=== PATIENT | female | born 1955 | race Caucasian/White ===

== ENCOUNTER 2017-10-13 11:43 | Emergency (ER) | payer BC ==
--- NOTE | 2017-10-13 12:04 | EDM.PDOC ---
ED HPI GENERAL MEDICAL PROBLEM - General Chief Complaint: Lower Extremity Injury/Pain Stated Complaint: LEFT FOOT PAIN Time Seen by Provider: 10/13/17 11:44 Source of Information: Reports: Patient History Limitations: Reports: No Limitations - History of Present Illness INITIAL COMMENTS - FREE TEXT/NARRATIVE: HISTORY AND PHYSICAL: History of present illness: Patient is a 62-year-old female who presents to the emergency room with complaints of left lateral ankle pain. She states she "twisted it wrong" on Wednesday and she has continued pain with weight bearing. She has been using a compression stocking and [id number] products to help alleviate this discomfort. Some bruising and soft tissue swelling noted to the left lateral ankle. Eyes any fever, chills, chest pain or shortness of breath. Denies any GI or symptoms. Patient is able to weight bear although it does cause increased pain. Denies any numbness or tingling to the distal extremity. Previous injury or fracture of the affected extremity. Review of systems: As per history of present illness and below otherwise all systems reviewed and negative. Past medical history: As per history of present illness and as reviewed below otherwise noncontributory. Surgical history: As per history of present illness and as reviewed below otherwise noncontributory. Social history: No reported history of drug or alcohol abuse. Family history: As per history of present illness and as reviewed below otherwise noncontributory. Physical exam: General: Well-developed and well-nourished 62-year-old female. Alert and oriented. Nontoxic appearing and in no acute distress. HEENT: Atraumatic, normocephalic, pupils equal and reactive bilaterally, negative for conjunctival pallor or scleral icterus, mucous membranes moist, throat clear, neck supple, nontender, trachea midline. No drooling or trismus noted. No meningeal signs Lungs: Clear to auscultation, breath sounds equal bilaterally, chest nontender. Heart: S1S2, regular rate and rhythm without overt murmur Abdomen: Soft, nondistended, nontender. Negative for masses or hepatosplenomegaly. Negative for costovertebral tenderness. Pelvis: Stable nontender. Genitourinary: Deferred. Rectal: Deferred. Skin: Healing bruising noted along the solar surface into the left lateral ankle. Otherwise Intact, warm, dry. No lesions or rashes noted. Extremities: Moves all extremities per self without difficulty or deficits. Does have pain with palpation over the left lateral malleolus, strong pedal pulse and pretibial pulse of the affected extremity. Capillary refill less than 3 seconds. Positive CMS. negative for cords or calf pain. Neurovascular unremarkable. Neuro: Awake, alert, oriented. Cranial nerves II through XII unremarkable. Cerebellum unremarkable. Motor and sensory unremarkable throughout. Exam nonfocal. Notes: X-ray shows no findings of fracture or dislocation. We'll give her a stirrup splint with crutches. Education completed. Supportive care measures reviewed and discussed. Patient voices understanding and is agreeable to plan of care. Denies any further questions or concerns at this time. Diagnostics: X-ray left ankle Therapeutics: Stirup Splint, Crutches Prescription: None Impression: Left ankle injury Plan: 1. Rest, ice, elevate the affected extremity. 2. Tylenol and/or ibuprofen as needed and as discussed. 3. Please follow-up with your primary care provider and/or the orthopedic provider in the next 1-2 days. Return to the ED as needed and as discussed. Definitive disposition and diagnosis as appropriate pending reevaluation and review of above. left ankle Pain Score (Numeric/FACES): 4 - Related Data Allergies Allergy/AdvReac Type Severity Reaction Status Date / Time bee pollen Allergy Swelling Verified 10/13/17 11:56 Penicillins Allergy Rash Verified 10/13/17 11:56 Home Meds: Home Meds . [Unable to Verify Home Med List] 10/13/17 [History] Review of Systems - Review of Systems Review Of Systems: ROS reveals no pertinent complaints other than HPI. ED EXAM, GENERAL - Physical Exam Exam: See Below (See dictation) Course - Vital Signs Last Recorded V/S: Last Vital Signs Temp 96.6 F 10/13/17 11:53 Pulse 81 10/13/17 11:53 Resp 16 10/13/17 11:53 BP 142/77 H 10/13/17 11:53 Pulse Ox 94 L 10/13/17 11:53 Departure - Departure Time of Disposition: 12:39 Disposition: Home, Self-Care 01 Clinical Impression: Left ankle injury Qualifiers: Encounter type: initial encounter Qualified Code(s): S99.912A - Unspecified injury of left ankle, initial encounter - Discharge Information Instructions: Ankle Sprain, [id number] Referrals: PCP,None [Primary Care Provider] - Forms: ED Department Discharge Additional Instructions: The following information is given to patients seen in the emergency department who are being discharged to home. This information is to outline your options for follow-up care. We provide all patients seen in our emergency department with a follow-up referral. The need for follow-up, as well as the timing and circumstances, are variable depending upon the specifics of your emergency department visit. If you don't have a primary care physician on staff, we will provide you with a referral. We always advise you to contact your personal physician following an emergency department visit to inform them of the circumstance of the visit and for follow-up with them and/or the need for any referrals to a consulting specialist. The emergency department will also refer you to a specialist when appropriate. This referral assures that you have the opportunity for follow-up care with a specialist. All of these measure are taken in an effort to provide you with optimal care, which includes your follow-up. Under all circumstances we always encourage you to contact your private physician who remains a resource for coordinating your care. When calling for follow-up care, please make the office aware that this follow-up is from your recent emergency room visit. If for any reason you are refused follow-up, please contact the [facility] at and asked to speak to the emergency department charge nurse. [facility] [address] [place] [id number] [facility] [address] [place] [address], [address] [place] [address] 1. Rest, ice, elevate the affected extremity. 2. Tylenol and/or ibuprofen as needed and as discussed. 3. Please follow-up with your primary care provider and/or the orthopedic provider in the next 1-2 days. Return to the ED as needed and as discussed.
--- NOTE | 2017-10-13 12:38 | CR ---
EXAMINATION: Left ankle HISTORY: Pain COMPARISON: None TECHNIQUE: 3 views FINDINGS/IMPRESSION: There is no acute osseous abnormality, dislocation, or fracture. Bone mineraliza tion and joint spaces appear preserved. Osteophyte formation is noted. Well-corticated ossific densit y inferior to the medial malleolus is likely secondary to an old injury.
== END 2017-10-13 12:55 | disposition home or self-care (01) ==
LOC: MW.ED 11:43
DX: S99.912A Unspecified injury of left ankle, initial encounter (principal); Z88.0 Allergy status to penicillin; X50.1XXA Overexertion from prolonged static or awkward postures, initial encounter
CPT/HCPCS: 73610-26-LT; 73610-LT; 99283

== ENCOUNTER 2021-02-05 06:55 | Inpatient (IN) | payer BC ==
[2021-02-05] MEDS ORDERED: Sodium Chloride 0.9% 2.5 ML Syringe FLUSH PRN ×2 (06:57→09:56)
[2021-02-05] MEDS ORDERED: Sodium Chloride 0.9% 10 ML Syringe FLUSH PRN (06:57)
[2021-02-05] MEDS ORDERED: Sodium Chloride 0.9% 1,000 ML IV SCH (07:00)
--- NOTE | 2021-02-05 07:01 | EDM.PDOC ---
ED HPI GENERAL MEDICAL PROBLEM - General Stated Complaint: STROKE Time Seen by Provider: 02/05/21 06:56 - History of Present Illness INITIAL COMMENTS - FREE TEXT/NARRATIVE: History of present illness: [] Patient woke up at 2 AM and she can use her left arm and left leg well. She fell and says she has back pain because of the fall. She talked her sister this morning who is a nurse. She told her to get to the emergency room. Patient was normal at 1030 when she went to bed. She has no speech problem. She has no vision problems she has no neglect. She does have weakness and cannot resist gravity more than a couple seconds of the left upper extremity and left lower extremity and cannot walk well. The right side not affected and sensory is not affected. Patient's not diabetic does not smoke and does not get treated for blood pressure or cholesterol. She has no family history of heart attack or stroke Review of systems: As per history of present illness and below otherwise all systems reviewed and negative. Past medical history: As per history of present illness and as reviewed below otherwise noncontributory. Surgical history: As per history of present illness and as reviewed below otherwise noncontributory. Social history: No reported history of drug or alcohol abuse. Family history: As per history of present illness and as reviewed below otherwise noncontributory. Physical exam: Constitutional - well developed, well-nourished and in no acute distress HEENT - normocephalic, no evidence of trauma - external nose and mouth normal - no mass in neck and no JVD - mucosae moist EYES - full EOM, PERRL, no icterus - no evidence of inflammation, injection, or drainage Respiratory - no respiratory distress, equal bilateral expansion, lungs clear to auscultation and no abnormal lung sounds Cardiovascular - Regular Rhythm with S1 and S2 appreciated and no murmur, gallop or rub. GI - abdomen soft without distension or organomegaly - normal bowel sounds - no guard or rebound Musculoskeletal no gross deformity of long bones or joints - no tenderness, swelling or edema Neurologic - Alert and oriented times four - CN II-XII grossly intact -sensory intact in the extremities and the patient has weakness of the left side. She cannot resist gravity more than 1 second with the left arm more than 2 or 3 seconds with the left leg and her strength on the right is normal. Psychiatric - appropriate mood and affect with normal thought content Hematologic - No petechiae or purpura - mucosa appropriate color and sclera not pale - normal nail bed color and refill Integument - no rash or evidence of trauma - normal turgor Diagnostics: [] Therapeutics: [] Impression: [] Plan: [] Definitive disposition and diagnosis as appropriate pending reevaluation and review of above. - Related Data Allergies Allergy/AdvReac Type Severity Reaction Status Date / Time bee pollen Allergy Swelling Verified 10/13/17 11:56 Penicillins Allergy Rash Verified 10/13/17 11:56 Home Meds: Home Meds . [Unable to Verify Home Med List] 10/13/17 [History] Past Medical History Genitourinary History: Reports: Urinary Incontinence Psychiatric History: Reports: Anxiety, Depression Oncologic (Cancer) History: Reports: Colon - Infectious Disease History Infectious Disease History: Reports: Chicken Pox, Measles - Past Surgical History GI Surgical History: Reports: Colon Female Surgical History: Reports: Hysterectomy Social & Family History - Family History Family Medical History: No Pertinent Family History - Caffeine Use Caffeine Use: Reports: Coffee, Energy Drinks, Tea ED ROS GENERAL - Review of Systems Review Of Systems: Comprehensive ROS is negative, except as noted in HPI. ED EXAM, GENERAL - Physical Exam Exam: See Below Free Text/Narrative:: My physical exam is in the HPI #1 Interpretation EKG Interpretation Comments: EKG done 02/05/2021 at 7:23 AM shows a sinus rhythm with a heart rate of 75 a NC interval of 146 the QT duration of 451 and axis of 19. The QRS is normal ST and T are normal there is no prior for comparison. Impression normal Course - Vital Signs Text/Narrative:: Patient presents as a stroke. Last time seen normal 8-1/2 hours ago. She is out of the window for thrombolytics but not for interventional neurology. Last Recorded V/S: Last Vital Signs Temp 37.0 C 02/05/21 06:55 Pulse 86 02/05/21 06:55 Resp 18 02/05/21 06:55 BP 169/95 H 02/05/21 06:55 Pulse Ox 97 02/05/21 06:55 - Orders/Labs/Meds Orders: Active Orders 24 hr Category Date Time Status Chest 1V Frontal [CR] Stat Exams 02/05/21 06:57 Taken Lumbar Spine 2 or 3V [CR] Stat Exams 02/05/21 07:00 Ordered CORONAVIRUS COVID-19 AUGIE [MOLEC] Stat Lab 02/05/21 07:40 Received Sodium Chloride 0.9% [Normal Saline] 1,000 ml Med 02/05/21 07:00 Active IV ASDIRECTED Sodium Chloride 0.9% [Saline Flush] Med 02/05/21 06:57 Active 10 ml FLUSH ASDIRECTED PRN Sodium Chloride 0.9% [Saline Flush] Med 02/05/21 06:57 Active 2.5 ml FLUSH ASDIRECTED PRN Saline Lock Insert [OM.PC] Stat Oth 02/05/21 06:57 Ordered Medication Orders Sodium Chloride (Normal Saline) 1,000 mls @ 100 mls/hr IV ASDIRECTED JARROD Last Admin: 02/05/21 07:30 Dose: 100 mls/hr Documented by: HERNAN Sodium Chloride (Sodium Chloride 0.9% 10 Ml Syringe) 10 ml FLUSH ASDIRECTED PRN PRN Reason: Keep Vein Open Last Admin: 02/05/21 07:30 Dose: 10 ml Documented by: HERNAN Sodium Chloride (Sodium Chloride 0.9% 2.5 Ml Syringe) 2.5 ml FLUSH ASDIRECTED PRN PRN Reason: Keep Vein Open Last Admin: 02/05/21 07:30 Dose: 2.5 ml Documented by: HERNAN Labs: Laboratory Tests 02/05/21 02/05/21 02/05/21 Range/Units 06:57 06:57 06:57 WBC 10.85 (4.0-11.0) K/uL RBC 4.45 (4.30-5.90) M/uL Hgb 12.6 (12.0-16.0) g/dL Hct 38.2 (36.0-46.0) % MCV 85.8 (80.0-98.0) fL MCH 28.3 (27.0-32.0) pg MCHC 33.0 (31.0-37.0) g/dL RDW Std Deviation 45.4 (28.0-62.0) fl RDW Coeff of Davie 15 (11.0-15.0) % Plt Count 338 (150-400) K/uL MPV 12.30 H (7.40-12.00) fL Neut % (Auto) 82.2 H (48.0-80.0) % Lymph % (Auto) 11.2 L (16.0-40.0) % [place] % (Auto) 6.4 (0.0-15.0) % Eos % (Auto) 0.0 (0.0-7.0) % Baso % (Auto) 0.2 (0.0-1.5) % Neut # (Auto) 8.9 H (1.4-5.7) K/uL Lymph # (Auto) 1.2 (0.6-2.4) K/uL [place] # (Auto) 0.7 (0.0-0.8) K/uL Eos # (Auto) 0.0 (0.0-0.7) K/uL Baso # (Auto) 0.0 (0.0-0.1) K/uL Nucleated RBC % 0.2 /100WBC Nucleated RBCs # 0 K/uL INR 1.00 APTT 26.3 (18.6-31.3) SEC Sodium 144 (136-145) mmol/L Potassium 3.6 (3.5-5.1) mmol/L Chloride 106 (98-107) mmol/L Carbon Dioxide 27.0 (21.0-32.0) mmol/L BUN 14 (7.0-18.0) mg/dL Creatinine 1.0 (0.6-1.0) mg/dL Est Cr Clr Drug Dosing 55.82 mL/min Estimated GFR (MDRD) 55.5 ml/min Glucose 118 H (74-106) mg/dL Calcium 9.7 (8.5-10.1) mg/dL Magnesium 2.1 (1.8-2.4) mg/dL Total Bilirubin 0.5 (0.2-1.0) mg/dL AST 23 (15-37) IU/L ALT 32 (14-63) IU/L Alkaline Phosphatase 109 (46-116) U/L Troponin I < 0.050 (0.000-0.056) ng/mL Total Protein 7.9 (6.4-8.2) g/dL Albumin 4.1 (3.4-5.0) g/dL Globulin 3.8 (2.6-4.0) g/dL Albumin/Globulin Ratio 1.1 (0.9-1.6) TSH, Ultra Sensitive 3.36 (0.36-3.74) uIU/mL Urine Color Urine Appearance Urine pH (5.0-8.0) Ur Specific [facility] (1.001-1.035) Urine Protein (NEGATIVE) mg/dL Urine Glucose (UA) (NEGATIVE) mg/dL Urine Ketones (NEGATIVE) mg/dL Urine Occult Blood (NEGATIVE) Urine Nitrite (NEGATIVE) Urine Bilirubin (NEGATIVE) Urine Urobilinogen (<2.0) EU/dL Ur Leukocyte Esterase (NEGATIVE) 02/05/21 Range/Units 07:56 WBC (4.0-11.0) K/uL RBC (4.30-5.90) M/uL Hgb (12.0-16.0) g/dL Hct (36.0-46.0) % MCV (80.0-98.0) fL MCH (27.0-32.0) pg MCHC (31.0-37.0) g/dL RDW Std Deviation (28.0-62.0) fl RDW Coeff of [place]ie (11.0-15.0) % Plt Count (150-400) K/uL MPV (7.40-12.00) fL Neut % (Auto) (48.0-80.0) % Lymph % (Auto) (16.0-40.0) % [place] % (Auto) (0.0-15.0) % Eos % (Auto) (0.0-7.0) % Baso % (Auto) (0.0-1.5) % Neut # (Auto) (1.4-5.7) K/uL Lymph # (Auto) (0.6-2.4) K/uL [place] # (Auto) (0.0-0.8) K/uL Eos # (Auto) (0.0-0.7) K/uL Baso # (Auto) (0.0-0.1) K/uL Nucleated RBC % /100WBC Nucleated RBCs # K/uL INR APTT (18.6-31.3) SEC Sodium (136-145) mmol/L Potassium (3.5-5.1) mmol/L Chloride (98-107) mmol/L Carbon Dioxide (21.0-32.0) mmol/L BUN (7.0-18.0) mg/dL Creatinine (0.6-1.0) mg/dL Est Cr Clr Drug Dosing mL/min Estimated GFR (MDRD) ml/min Glucose (74-106) mg/dL Calcium (8.5-10.1) mg/dL Magnesium (1.8-2.4) mg/dL Total Bilirubin (0.2-1.0) mg/dL AST (15-37) IU/L ALT (14-63) IU/L Alkaline Phosphatase (46-116) U/L Troponin I (0.000-0.056) ng/mL Total Protein (6.4-8.2) g/dL Albumin (3.4-5.0) g/dL Globulin (2.6-4.0) g/dL Albumin/Globulin Ratio (0.9-1.6) TSH, Ultra Sensitive (0.36-3.74) uIU/mL Urine Color YELLOW Urine Appearance CLEAR Urine pH 7.5 (5.0-8.0) Ur Specific [facility] 1.010 (1.001-1.035) Urine Protein NEGATIVE (NEGATIVE) mg/dL Urine Glucose (UA) NEGATIVE (NEGATIVE) mg/dL Urine Ketones NEGATIVE (NEGATIVE) mg/dL Urine Occult Blood NEGATIVE (NEGATIVE) Urine Nitrite NEGATIVE (NEGATIVE) Urine Bilirubin NEGATIVE (NEGATIVE) Urine Urobilinogen 0.2 (<2.0) EU/dL Ur Leukocyte Esterase NEGATIVE (NEGATIVE) Meds: Medications Generic Name Dose Route Start Last Admin Trade Name Freq PRN Reason Stop Dose Admin Sodium Chloride 1,000 mls @ 100 mls/hr 02/05/21 07:00 02/05/21 07:30 Normal Saline IV 100 mls/hr ASDIRECTED JARROD Administration Sodium Chloride 10 ml 02/05/21 06:57 02/05/21 07:30 Sodium Chloride 0.9% 10 Ml Syringe FLUSH 10 ml ASDIRECTED PRN Administration Keep Vein Open Sodium Chloride 2.5 ml 02/05/21 06:57 02/05/21 07:30 Sodium Chloride 0.9% 2.5 Ml Syringe FLUSH 2.5 ml ASDIRECTED PRN Administration Keep Vein Open Discontinued Medications Generic Name Dose Route Start Last Admin Trade Name Freq PRN Reason Stop Dose Admin Aspirin 324 mg 02/05/21 07:18 02/05/21 07:29 Aspirin 81 Mg Tab.Chew PO 02/05/21 07:19 324 mg ONETIME ONE Administration Iopamidol 100 ml 02/05/21 07:18 02/05/21 07:19 Iopamidol 755 Mg/Ml 500 Ml Multipack Bottle IVPUSH 02/05/21 07:19 100 ml ONETIME STA Administration - Re-Assessments/Exams Free Text/Narrative Re-Assessment/Exam: 02/05/21 08:[address]il[address] with [address]. Oneil and she agreed to consult on this patient if admitted locally. 02/05/21 08:19 Condition unchanged. Discussed with Dr. Poole at 8:16 AM and he agreed to admit the patient here and let Dr. Oneil manage the stroke. Departure - Departure Time of Disposition: 08:19 Disposition: Admitted As Inpatient 65 Condition: Good Clinical Impression: Acute CVA (cerebrovascular accident), Left hemiparesis - Discharge Information Referrals: PCP,None [Primary Care Provider] - Sepsis Event Note (ED) - Focused Exam Vital Signs: Vital Signs Temp Pulse Resp BP Pulse Ox 02/05/21 06:55 37.0 C 86 18 169/95 H 97 - My Orders Last 24 Hours: My Active Orders 02/05/21 06:57 Chest 1V Frontal [CR] Stat Sodium Chloride 0.9% [Saline Flush] 10 ml FLUSH ASDIRECTED PRN Sodium Chloride 0.9% [Saline Flush] 2.5 ml FLUSH ASDIRECTED PRN Saline Lock Insert [OM.PC] Stat 02/05/21 07:00 Lumbar Spine 2 or 3V [CR] Stat Sodium Chloride 0.9% [Normal Saline] 1,000 ml IV ASDIRECTED 02/05/21 07:40 CORONAVIRUS COVID-19 AUGIE [MOLEC] Stat - Assessment/Plan Last 24 Hours: My Active Orders 02/05/21 06:57 Chest 1V Frontal [CR] Stat Sodium Chloride 0.9% [Saline Flush] 10 ml FLUSH ASDIRECTED PRN Sodium Chloride 0.9% [Saline Flush] 2.5 ml FLUSH ASDIRECTED PRN Saline Lock Insert [OM.PC] Stat 02/05/21 07:00 Lumbar Spine 2 or 3V [CR] Stat Sodium Chloride 0.9% [Normal Saline] 1,000 ml IV ASDIRECTED 02/05/21 07:40 CORONAVIRUS COVID-19 AUGIE [MOLEC] Stat
[2021-02-05] MEDS ORDERED: Iopamidol 755 MG/ML 500 ML Multipack Bottle IVPUSH STA (07:18)
[2021-02-05] MEDS ORDERED: Aspirin 81 MG Tab.Chew PO ONE (07:18)
--- NOTE | 2021-02-05 07:28 | CT ---
INDICATION: Stroke symptoms COMPARISON: None TECHNIQUE: CT examination of the head was performed as axial sections without intravenous contrast. Images were obtained from the vertex of the skull through the skull base. Please note that all CT scans at this facility use dose modulation, iterative reconstruction, and/or weight-based dosing when appropriate to reduce radiation dose to as low as reasonably achievable. FINDINGS: The brain shows no sign of mass lesion, mass effect, hemorrhage, or edema. There are involutional changes. There is mild cortical atrophy and there is mild white matter disease. There is no hydrocephalus. The visualized portions of the orbits are normal in appearance. The osseous structures are normal in appearance with no sign of abnormality in the skull base or calvarium. IMPRESSION: Involutional changes. No acute-appearing findings. Please note that all CT scans at this facility use dose modulation, iterative reconstruction, and/or weight-based dosing when appropriate to reduce radiation dose to as low as reasonably achievable. Dictated by Neal Post MD @ 02/05/2021 7:27:16 AM (Electronically Signed)
--- NOTE | 2021-02-05 07:34 | CT ---
DATE: 02/05/2021. CLINICAL HISTORY: Acute neurological deficit. TECHNIQUE: Standard helical CT image acquisition through the head and neck was performed after intravenous contrast bolus enhancement. Multiplanar reconstructed images were performed and interpreted. COMPARISON: None available. FINDINGS: The origins of the great vessels from the aortic arch are patent. The origins of the right and left vertebral arteries are patent. The common carotid arteries are patent. No significant luminal stenoses of the proximal internal carotid arteries by NASCET criteria. The more distal cervical segments of the internal carotid arteries are patent. The cervical segments of the vertebral arteries are patent. No intracranial proximal large vessel occlusion or flow-limiting luminal stenosis. The visualized lung apices are unremarkable. The thyroid gland is unremarkable. Degenerative changes of the cervical spine. IMPRESSION: 1. No intracranial proximal large vessel occlusion or flow-limiting luminal stenosis. 2. Patent cervical arterial vasculature without hemodynamically significant luminal stenosis. Please note that all CT scans at this facility use dose modulation, iterative reconstruction, and/or weight-based dosing when appropriate to reduce radiation dose to as low as reasonably achievable. Dictated by Chris Tavares MD @ 02/05/2021 2:11:19 PM (Electronically Signed)
[2021-02-05 08:01] LABS: BLOOD UREA NITROGEN,BUN 14 mg/dL (7.0-18.0); CHLORIDE,CL 106 mmol/L (98-107); GLUCOSE RANDOM 118 mg/dL (74-106); POTASSIUM,K 3.6 mmol/L (3.5-5.1); SODIUM,NA 144 mmol/L (136-145)
--- NOTE | 2021-02-05 08:26 | CR ---
INDICATION: Stroke. COMPARISON: None TECHNIQUE: Single-view chest radiograph obtained as in AP upright study FINDINGS: TUBES AND LINES: None. HEART AND MEDIASTINUM: The heart size is normal. The mediastinal contour appears normal for patient age. LUNGS AND PLEURAL SPACES: The lungs appear normal.The pleural spaces are unremarkable. OSSEOUS STRUCTURES: Age-appropriate appearance. No acute focal finding. IMPRESSION: No evidence of active pulmonary disease. Dictated by Neal Post MD @ 02/05/2021 8:25:49 AM (Electronically Signed)
--- NOTE | 2021-02-05 08:31 | CR ---
Indication: Pain related to a fall. Technique: Two images of the lumbosacral spine were acquired Comparison: None Findings: Decreased bone mineral density. Moderate degenerative changes diffusely. No visible fracture, dislocation or destructive process. Urinary tract contrast from a recent CT. Fecal retention. Impression: Demineralization and degenerative change without fracture or destructive process. Dictated by Neal Post MD @ 02/05/2021 8:29:19 AM (Electronically Signed)
[2021-02-05] MEDS ORDERED: Acetaminophen 325 MG Tab PO PRN (09:56)
[2021-02-05] MEDS ORDERED: Ondansetron 4 MG/2 ML SDV IVPUSH PRN (09:56)
[2021-02-05] MEDS ORDERED: Docusate Sodium 100 MG Cap PO PRN (09:56)
[2021-02-05 10:12] LABS: HEMOGLOBIN A1C 5.5 %
--- NOTE | 2021-02-05 11:59 | PCM.HP.2 ---
H&P History of Present Illness - General Date of Service: 02/05/21 Admit Problem/Dx: Admission Diagnosis/Problem Admission Diagnosis/Problem Stroke of unknown etiology Source of Information: Patient History Limitations: Reports: No Limitations - History of Present Illness Initial Comments - Free Text/Narative: This 65-year-old female [id number] with past medical history of bladder control issues and anxiety/depression presented to the ER after she woke up early this morning around 2 AM to go to the bathroom when she noticed her left arm was significantly weak and left leg was weak as well. She had attempted to get up and ambulate feeling significantly tilted to the left and did fall as she was unlocking her back torso when someone came to help the door will be unlocked. She reports she otherwise has been feeling well. Maybe a small headache last night when she was leaving work but otherwise no other complaints. She denies any visual concerns. No dizziness or lightheadedness. No speech concerns or swallowing concerns. She denies any chest pain or shortness of breath no abdominal pain no incontinence of stool or urine. She denies any sensation concerns to the left upper and lower extremities. She feels that her left arm is significantly heavy. She feels the weakness is more in her left foot more so in the entire leg. She has no concerns of the right extremity and strength is good. She denies any history of this in the past. She denies any family history of CVA. She does report that her brother recently had coronary artery stents placed. She denies any history of hypertension, diabetes or high cholesterol. She denies any tobacco use during her lifetime, no alcohol use and no recreational drug use. She denies any arrhythmias. She does report that she drinks monster drinks at least 1 a day. In the ER no leukocytosis noted. INR 1.0 sodium 144 potassium 3.6 BUN 14 creatinine 1.0 hemoglobin A1c 5.5 troponin negative triglycerides 127 total cholesterol 235 LDL 149 HDL 61 TSH 3.11 urine negative SARS-CoV-[address] obtained which shows no acute appearing findings no mass lesion or hemorrhage noted. Mild cortical atrophy no hydrocephalus. Head CTA obtained on preliminary reading shows no large vessel occlusion no significant stenosis. CTA of the neck shows no carotid stenosis no dissection involving the carotid or vertebral system per preliminary report. Chest x-ray reveals no evidence of acute cardiopulmonary disease. Lumbar x-ray shows demineralization and degenerative changes without fracture or destructive process. EKG sinus rhythm no acute arrhythmia noted. Patient was given aspirin in the ER. Blood pressures 1 50-1 60 over 80s in the ER. Heart rates 70s to 80s. Afebrile. Dr. Oneil was consulted in the ER regarding acute CVA. Patient outside of timeframe for TPA. No acute thrombectomy needed at this time. Patient to be admitted for possible acute CVA with left-sided weakness. - Related Data Allergies/Adverse Reactions: Allergies Allergy/AdvReac Type Severity Reaction Status Date / Time bee pollen Allergy Swelling Verified 10/13/17 11:56 Penicillins Allergy Rash Verified 10/13/17 11:56 Home Medications: Home Meds . [Unable to Verify Home Med List] 10/13/17 [History] Past Medical History Cardiovascular History: Reports: None. Denies: Afib, Blood Clots/VTE/DVT, CAD, High Cholesterol, Hypertension Respiratory History: Reports: None. 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 Denies: CVA, MS, Seizure, TIA Psychiatric History: Reports: Anxiety, Depression Endocrine/Metabolic History: Reports: None. Denies: Diabetes, Type II, Hypothyroidism Hematologic History: Reports: None Immunologic History: Reports: None Oncologic (Cancer) History: Reports: Colon Dermatologic History: Reports: None - Infectious Disease History Infectious Disease History: Reports: Chicken Pox, Measles - Past Surgical History GI Surgical History: Reports: Colon Female Surgical History: Reports: Hysterectomy Social & Family History - Family History Family Medical History: No Pertinent Family History - Tobacco Use Tobacco Use Status *Q: Never Tobacco User - Caffeine Use Caffeine Use: Reports: Coffee, Energy Drinks - Alcohol Use Alcohol Use History: No - Recreational Drug Use Recreational Drug Use: No - Living Situation & Occupation Living situation: Reports: Alone Occupation: Employed (Works at a [employer]) H&P Review of Systems - Review of Systems: Review Of Systems: See Below General: Reports: No Symptoms. Denies: Fever, Chills, Malaise, Weakness HEENT: Reports: No Symptoms. Denies: Contact Lenses, Headaches, Sinus Congestion, Sore Throat, Vertigo Pulmonary: Reports: No Symptoms. Denies: Shortness of Breath Cardiovascular: Reports: No Symptoms. Denies: Chest Pain Gastrointestinal: Reports: No Symptoms. Denies: Abdominal Pain, Nausea, Vomiting Genitourinary: Reports: No Symptoms, Incontinence (Chronic but takes meds). Denies: Dysuria, Frequency Musculoskeletal: Reports: Back Pain (Sore after fall). Denies: Neck Pain Skin: Reports: Bruising Psychiatric: Reports: No Symptoms Neurological: Reports: Difficulty Walking, Weakness (Left arm and leg) Hematologic/Lymphatic: Reports: No Symptoms Immunologic: Reports: No Symptoms Exam - Exam Exam: See Below - Vital Signs Vital Signs: Last Vital Signs Temp 98.6 F 02/05/21 06:55 Pulse 81 02/05/21 08:50 Resp 18 02/05/21 06:55 BP 147/77 H 02/05/21 08:50 Pulse Ox 93 L 02/05/21 08:50 Weight: 86.183 kg - Exam General: Alert, Oriented, Cooperative HEENT: Conjunctiva Clear, Mucosa Moist & [place], Nares Patent, Pupils Equal Neck: Supple, Trachea Midline Lungs: Clear to Auscultation, Normal Respiratory Effort Cardiovascular: Regular Rate, Regular Rhythm, Normal S1, Normal S2. No: Irregular Rhythm, Systolic Murmur GI/Abdominal Exam: Normal Bowel Sounds, Soft, Non-Tender Extremities: Normal Inspection, Normal Range of Motion, Non-Tender, No Pedal Edema Neurological: No: Strength Equal Bilateral (Left weaker than right) Neuro Extensive - Mental Status: Alert, Oriented x3, Normal Mood/Affect Neuro Extensive - Motor, Sensory, Reflexes: CN II-XII Intact, Abnormal Gait, Pronator Drift (L), Abnormal Finger to Nose, Abnormal Heel to [place] Psychiatric: Alert, Normal Affect, Normal Mood - Patient Data Lab Results Last 24 hrs: Laboratory Results - last 24 hr 02/05/21 02/05/21 02/05/21 Range/Units 06:57 06:57 06:57 WBC 10.85 (4.0-11.0) K/uL RBC 4.45 (4.30-5.90) M/uL Hgb 12.6 (12.0-16.0) g/dL Hct 38.2 (36.0-46.0) % MCV 85.8 (80.0-98.0) fL MCH 28.3 (27.0-32.0) pg MCHC 33.0 (31.0-37.0) g/dL RDW Std Deviation 45.4 (28.0-62.0) fl RDW Coeff of [place]ie 15 (11.0-15.0) % Plt Count 338 (150-400) K/uL MPV 12.30 H (7.40-12.00) fL Neut % (Auto) 82.2 H (48.0-80.0) % Lymph % (Auto) 11.2 L (16.0-40.0) % [place] % (Auto) 6.4 (0.0-15.0) % Eos % (Auto) 0.0 (0.0-7.0) % Baso % (Auto) 0.2 (0.0-1.5) % Neut # (Auto) 8.9 H (1.4-5.7) K/uL Lymph # (Auto) 1.2 (0.6-2.4) K/uL [place] # (Auto) 0.7 (0.0-0.8) K/uL Eos # (Auto) 0.0 (0.0-0.7) K/uL Baso # (Auto) 0.0 (0.0-0.1) K/uL Nucleated RBC % 0.2 /100WBC Nucleated RBCs # 0 K/uL INR 1.00 APTT 26.3 (18.6-31.3) SEC Sodium 144 (136-145) mmol/L Potassium 3.6 (3.5-5.1) mmol/L Chloride 106 (98-107) mmol/L Carbon Dioxide 27.0 (21.0-32.0) mmol/L BUN 14 (7.0-18.0) mg/dL Creatinine 1.0 (0.6-1.0) mg/dL Est Cr Clr Drug Dosing 55.82 mL/min Estimated GFR (MDRD) 55.5 ml/min Glucose 118 H (74-106) mg/dL Hemoglobin A1c (4.5 - 6.2) % Calcium 9.7 (8.5-10.1) mg/dL Magnesium 2.1 (1.8-2.4) mg/dL Total Bilirubin 0.5 (0.2-1.0) mg/dL AST 23 (15-37) IU/L ALT 32 (14-63) IU/L Alkaline Phosphatase 109 (46-116) U/L Troponin I < 0.050 (0.000-0.056) ng/mL Total Protein 7.9 (6.4-8.2) g/dL Albumin 4.1 (3.4-5.0) g/dL Globulin 3.8 (2.6-4.0) g/dL Albumin/Globulin Ratio 1.1 (0.9-1.6) Triglycerides (0-200) mg/dL Cholesterol (50-200) mg/dL LDL Cholesterol, Calc (60-180) mg/dL VLDL Cholesterol (5-55) mg/dL HDL Cholesterol (40-60) mg/dL Cholesterol/HDL Ratio (3.3-6.0) TSH, Ultra Sensitive 3.36 (0.36-3.74) uIU/mL Urine Color Urine Appearance Urine pH (5.0-8.0) Ur Specific Arp (1.001-1.035) Urine Protein (NEGATIVE) mg/dL Urine Glucose (UA) (NEGATIVE) mg/dL Urine Ketones (NEGATIVE) mg/dL Urine Occult Blood (NEGATIVE) Urine Nitrite (NEGATIVE) Urine Bilirubin (NEGATIVE) Urine Urobilinogen (<2.0) EU/dL Ur Leukocyte Esterase (NEGATIVE) SARS-CoV-2 RNA (AUGIE) (NEGATIVE) 02/05/21 02/05/21 02/05/21 Range/Units 06:57 06:57 07:40 WBC (4.0-11.0) K/uL RBC (4.30-5.90) M/uL Hgb (12.0-16.0) g/dL Hct (36.0-46.0) % MCV (80.0-98.0) fL MCH (27.0-32.0) pg MCHC (31.0-37.0) g/dL RDW Std Deviation (28.0-62.0) fl RDW Coeff of [place]ie (11.0-15.0) % Plt Count (150-400) K/uL MPV (7.40-12.00) fL Neut % (Auto) (48.0-80.0) % Lymph % (Auto) (16.0-40.0) % [place] % (Auto) (0.0-15.0) % Eos % (Auto) (0.0-7.0) % Baso % (Auto) (0.0-1.5) % Neut # (Auto) (1.4-5.7) K/uL Lymph # (Auto) (0.6-2.4) K/uL [place] # (Auto) (0.0-0.8) K/uL Eos # (Auto) (0.0-0.7) K/uL Baso # (Auto) (0.0-0.1) K/uL Nucleated RBC % /100WBC Nucleated RBCs # K/uL INR APTT (18.6-31.3) SEC Sodium (136-145) mmol/L Potassium (3.5-5.1) mmol/L Chloride (98-107) mmol/L Carbon Dioxide (21.0-32.0) mmol/L BUN (7.0-18.0) mg/dL Creatinine (0.6-1.0) mg/dL Est Cr Clr Drug Dosing mL/min Estimated GFR (MDRD) ml/min Glucose (74-106) mg/dL Hemoglobin A1c 5.5 (4.5 - 6.2) % Calcium (8.5-10.1) mg/dL Magnesium (1.8-2.4) mg/dL Total Bilirubin (0.2-1.0) mg/dL AST (15-37) IU/L ALT (14-63) IU/L Alkaline Phosphatase (46-116) U/L Troponin I (0.000-0.056) ng/mL Total Protein (6.4-8.2) g/dL Albumin (3.4-5.0) g/dL Globulin (2.6-4.0) g/dL Albumin/Globulin Ratio (0.9-1.6) Triglycerides 127 (0-200) mg/dL Cholesterol 235 H (50-200) mg/dL LDL Cholesterol, Calc 149 (60-180) mg/dL VLDL Cholesterol 25 (5-55) mg/dL HDL Cholesterol 61 H (40-60) mg/dL Cholesterol/HDL Ratio 3.9 (3.3-6.0) TSH, Ultra Sensitive 3.11 (0.36-3.74) uIU/mL Urine Color Urine Appearance Urine pH (5.0-8.0) Ur Specific [place]p (1.001-1.035) Urine Protein (NEGATIVE) mg/dL Urine Glucose (UA) (NEGATIVE) mg/dL Urine Ketones (NEGATIVE) mg/dL Urine Occult Blood (NEGATIVE) Urine Nitrite (NEGATIVE) Urine Bilirubin (NEGATIVE) Urine Urobilinogen (<2.0) EU/dL Ur Leukocyte Esterase (NEGATIVE) SARS-CoV-2 RNA (AUGIE) NEGATIVE (NEGATIVE) 02/05/21 Range/Units 07:56 WBC (4.0-11.0) K/uL RBC (4.30-5.90) M/uL Hgb (12.0-16.0) g/dL Hct (36.0-46.0) % MCV (80.0-98.0) fL MCH (27.0-32.0) pg MCHC (31.0-37.0) g/dL RDW Std Deviation (28.0-62.0) fl RDW Coeff of [place]ie (11.0-15.0) % Plt Count (150-400) K/uL MPV (7.40-12.00) fL Neut % (Auto) (48.0-80.0) % Lymph % (Auto) (16.0-40.0) % [place] % (Auto) (0.0-15.0) % Eos % (Auto) (0.0-7.0) % Baso % (Auto) (0.0-1.5) % Neut # (Auto) (1.4-5.7) K/uL Lymph # (Auto) (0.6-2.4) K/uL [place] # (Auto) (0.0-0.8) K/uL Eos # (Auto) (0.0-0.7) K/uL Baso # (Auto) (0.0-0.1) K/uL Nucleated RBC % /100WBC Nucleated RBCs # K/uL INR APTT (18.6-31.3) SEC Sodium (136-145) mmol/L Potassium (3.5-5.1) mmol/L Chloride (98-107) mmol/L Carbon Dioxide (21.0-32.0) mmol/L BUN (7.0-18.0) mg/dL Creatinine (0.6-1.0) mg/dL Est Cr Clr Drug Dosing mL/min Estimated GFR (MDRD) ml/min Glucose (74-106) mg/dL Hemoglobin A1c (4.5 - 6.2) % Calcium (8.5-10.1) mg/dL Magnesium (1.8-2.4) mg/dL Total Bilirubin (0.2-1.0) mg/dL AST (15-37) IU/L ALT (14-63) IU/L Alkaline Phosphatase (46-116) U/L Troponin I (0.000-0.056) ng/mL Total Protein (6.4-8.2) g/dL Albumin (3.4-5.0) g/dL Globulin (2.6-4.0) g/dL Albumin/Globulin Ratio (0.9-1.6) Triglycerides (0-200) mg/dL Cholesterol (50-200) mg/dL LDL Cholesterol, Calc (60-180) mg/dL VLDL Cholesterol (5-55) mg/dL HDL Cholesterol (40-60) mg/dL Cholesterol/HDL Ratio (3.3-6.0) TSH, Ultra Sensitive (0.36-3.74) uIU/mL Urine Color YELLOW Urine Appearance CLEAR Urine pH 7.5 (5.0-8.0) Ur Specific [place] 1.010 (1.001-1.035) Urine Protein NEGATIVE (NEGATIVE) mg/dL Urine Glucose (UA) NEGATIVE (NEGATIVE) mg/dL Urine Ketones NEGATIVE (NEGATIVE) mg/dL Urine Occult Blood NEGATIVE (NEGATIVE) Urine Nitrite NEGATIVE (NEGATIVE) Urine Bilirubin NEGATIVE (NEGATIVE) Urine Urobilinogen 0.2 (<2.0) EU/dL Ur Leukocyte Esterase NEGATIVE (NEGATIVE) SARS-CoV-2 RNA (AUGIE) (NEGATIVE) Result Diagrams: 02/05/21 06:57 02/05/21 06:57 Sepsis Event Note - Focused Exam Vital Signs: Vital Signs Temp Pulse Resp BP Pulse Ox 02/05/21 08:50 81 147/77 H 93 L 02/05/21 08:21 75 151/85 H 93 L 02/05/21 07:52 81 168/91 H 95 02/05/21 07:37 81 149/80 H 95 02/05/21 07:22 82 154/91 H 92 L 02/05/21 06:55 98.6 F 86 18 169/95 H 97 - Problem List (1) Acute CVA (cerebrovascular accident) SNOMED Code(s): 717843168, 350076766 ICD Code: I63.9 - CEREBRAL INFARCTION, UNSPECIFIED Status: Acute Current Visit: Yes (2) Left hemiparesis SNOMED Code(s): 158288398 ICD Code: G81.94 - HEMIPLEGIA, UNSPECIFIED AFFECTING LEFT NONDOMINANT SIDE Status: Acute Current Visit: Yes (3) Depression with anxiety SNOMED Code(s): 111220074 ICD Code: F41.8 - OTHER SPECIFIED ANXIETY DISORDERS Status: Chronic Current Visit: Yes (4) Bladder incontinence SNOMED Code(s): 865410129 ICD Code: R32 - UNSPECIFIED URINARY INCONTINENCE Status: Chronic Current Visit: Yes Problem List Initiated/Reviewed/Updated: Yes Orders Last 24hrs: Active Orders 24 hr Category Date Time Status Admission Status [Patient Status] [ADT] Stat ADT 02/05/21 08:20 Active Intake and Output [RC] QSHIFT Care 02/05/21 09:56 Active NIH Stroke Scale [RC] Q12HR Care 02/05/21 10:03 Active Notify Provider Consults [RC] ASDIRECTED Care 02/05/21 11:51 Ordered Oxygen Therapy [RC] PRN Care 02/05/21 09:56 Active Telemetry Monitoring [Cardiac Monitoring] [RC] . Care 02/05/21 09:41 Active DIRECTED Up With Assistance [RC] ASDIRECTED Care 02/05/21 09:56 Active VTE/DVT Education [RC] PER UNIT ROUTINE Care 02/05/21 09:56 Active Vital Signs [RC] Q4H Care 02/05/21 09:56 Active Consult to Physician [CONS] Routine Cons 02/05/21 11:51 Ordered OT Evaluation and Treatment [CONS] Routine Cons 02/05/21 09:56 Active PT Evaluation and Treatment [CONS] Routine Cons 02/05/21 09:56 Active Heart Healthy Diet [DIET] Diet 02/05/21 Lunch Active Brain w wo Cont [MR] Urgent Exams 02/05/21 09:56 Ordered Echo Comp wo Cont [US] Urgent Exams 02/05/21 09:56 Ordered BASIC METABOLIC PANEL,BMP [CHEM] AM Lab 02/06/21 05:11 Ordered CBC WITH AUTO DIFF [HEME] AM Lab 02/06/21 05:11 Ordered MAGNESIUM [CHEM] AM Lab 02/06/21 05:11 Ordered Acetaminophen [TylenoL] Med 02/05/21 09:56 Active 650 mg PO Q4H PRN Aspirin Med 02/06/21 09:00 Active 81 mg PO DAILY Docusate Sodium [Colace] Med 02/05/21 09:56 Active 100 mg PO BID PRN Ondansetron [Zofran] Med 02/05/21 09:56 Active 4 mg IVPUSH Q4H PRN Sodium Chloride 0.9% [Saline Flush] Med 02/05/21 09:56 Active 2.5 ml FLUSH ASDIRECTED PRN atorvaSTATin [Lipitor] Med 02/05/21 21:00 Active 80 mg PO BEDTIME Saline Lock Insert [OM.PC] Routine Oth 02/05/21 09:56 Ordered Medication Orders Acetaminophen (Acetaminophen 325 Mg Tab) 650 mg PO Q4H PRN PRN Reason: Pain (Mild 1-3)/fever Aspirin (Aspirin 81 Mg Tab.Chew) 81 mg PO DAILY JARROD Atorvastatin Calcium (Atorvastatin 40 Mg Tab) 80 mg PO BEDTIME JARROD Docusate Sodium (Docusate Sodium 100 Mg Cap) 100 mg PO BID PRN PRN Reason: Constipation Ondansetron HCl (Ondansetron 4 Mg/2 Ml Sdv) 4 mg IVPUSH Q4H PRN PRN Reason: Nausea Sodium Chloride (Sodium Chloride 0.9% 2.5 Ml Syringe) 2.5 ml FLUSH ASDIRECTED PRN PRN Reason: Keep Vein Open Assessment/Plan Comment:: This 65-year-old female admitted with suspected acute CVA with left-sided hemiparesis 1. Acute CVA -[facility] consulted -Obtain lipid panel, TSH and A1c -Obtain MRI of brain -Obtain echo -Monitor on telemetry for any arrhythmias consider Zio patch on discharge -Start aspirin daily -Start atorvastatin 80 mg daily -PT OT to evaluate and treat no speech therapy needed at this time is no swallow or speech difficulties noted VTE prophylaxis: Lovenox CODE STATUS: DNR/DNI per patient Dispo 2 to 3 days - Mortality Measure Prognosis:: Good
--- NOTE | 2021-02-05 12:34 | PCM.CONS ---
H&P History of Present Illness - General Date of Service: 02/05/21 Admit Problem/Dx: Admission Diagnosis/Problem Admission Diagnosis/Problem Stroke of unknown etiology - History of Present Illness Initial Comments - Free Text/Narative: 65 year old woman admitted today with left arm/leg weakness. She was last known well when she went to bed at 10:30. She woke up at 2 am and got up to go to the bathroom. She fell and was unable to stand. Weakness had persisted by 6am and presented to the ED. CTA head and neck was negative for occlusion. Her brother had MS at age 70. No tobacco use. 2 weeks ago she stayed home from work one day because she wasn't feeling well but was fine next day. She had mild headache yesterday, not today. CTA head and neck today 02/05/2021 No occlusion or significant stenosis CT head no acute process Labs 02/05/2021 COVID RNA negative, UA negative, CMP, TSH, CBC unremarkable - Related Data Allergies/Adverse Reactions: Allergies Allergy/AdvReac Type Severity Reaction Status Date / Time bee pollen Allergy Swelling Verified 10/13/17 11:56 Penicillins Allergy Rash Verified 10/13/17 11:56 Home Medications: Home Meds . [Unable to Verify Home Med List] 10/13/17 [History] Past Medical History Gastrointestinal History: Reports: None Genitourinary History: Reports: Urinary Incontinence [employer] History: Reports: None Musculoskeletal History: Reports: None Neurological History: Reports: None Psychiatric History: Reports: Anxiety, Depression Endocrine/Metabolic History: Reports: None Hematologic History: Reports: None Immunologic History: Reports: None Oncologic (Cancer) History: Reports: Colon Dermatologic History: Reports: None - Infectious Disease History Infectious Disease History: Reports: Chicken Pox, Measles - Past Surgical History GI Surgical History: Reports: Colon Female Surgical History: Reports: Hysterectomy Social & Family History - Family History Family Medical History: No Pertinent Family History - Caffeine Use Caffeine Use: Reports: Coffee, Energy Drinks - Recreational Drug Use Recreational Drug Use: No H&P Review of Systems - Review of Systems: Review Of Systems: Comprehensive ROS is negative, except as noted in HPI. Exam - Exam Exam: See Below - Vital Signs Vital Signs: Last Vital Signs Temp 37.0 C 02/05/21 06:55 Pulse 81 02/05/21 08:50 Resp 18 02/05/21 06:55 BP 147/77 H 02/05/21 08:50 Pulse Ox 93 L 02/05/21 08:50 Weight: 86.183 kg - Exam Physical Exam Comments:: Neurological: Mental Status: General: Normal activity, good hygiene, appropriate appearance. Level of consciousness: Awake, alert. Orientation: Oriented to person, place, time and situation. Concentration/Attention Span: Normal. Comprehension/Praxis: Able to perform a three step command. Fund of Knowledge/memory: Adequate recent and remote recall. Language: Fluent and articulate without evidence of aphasia or dysarthria. Thought Content: Normal. Insight/Judgement: Normal. Cranial Nerves: Pupils equally round and reactive to light. Visual dover full to confrontation, no extinction. . Gaze conjugate, EOMI. Sensation intact and symmetric to light touch. Face slightly asymmetric, modest dysarthria. . Palate elevates symmetrically. Normal shrug bilaterally. Tongue protrudes midline Motor: Weakness on left as follows: Left triceps 4, WE 4, WF 4+, finger abduction 3, hip flexion 3, knee extension 4, knee flexion 4-, ankle DF 4+ Sensation: Sensation is intact to temp and light touch. No extinction. . Deep tendon reflexes: Normoactive throughout. Coordination: Finger to nose limited by weakness on left Gait: not assessed - Patient Data Lab Results Last 24 hrs: Laboratory Results - last 24 hr 02/05/21 02/05/21 02/05/21 Range/Units 06:57 06:57 06:57 WBC 10.85 (4.0-11.0) K/uL RBC 4.45 (4.30-5.90) M/uL Hgb 12.6 (12.0-16.0) g/dL Hct 38.2 (36.0-46.0) % MCV 85.8 (80.0-98.0) fL MCH 28.3 (27.0-32.0) pg MCHC 33.0 (31.0-37.0) g/dL RDW Std Deviation 45.4 (28.0-62.0) fl RDW Coeff of Davie 15 (11.0-15.0) % Plt Count 338 (150-400) K/uL MPV 12.30 H (7.40-12.00) fL Neut % (Auto) 82.2 H (48.0-80.0) % Lymph % (Auto) 11.2 L (16.0-40.0) % Allen % (Auto) 6.4 (0.0-15.0) % Eos % (Auto) 0.0 (0.0-7.0) % Baso % (Auto) 0.2 (0.0-1.5) % Neut # (Auto) 8.9 H (1.4-5.7) K/uL Lymph # (Auto) 1.2 (0.6-2.4) K/uL Allen # (Auto) 0.7 (0.0-0.8) K/uL Eos # (Auto) 0.0 (0.0-0.7) K/uL Baso # (Auto) 0.0 (0.0-0.1) K/uL Nucleated RBC % 0.2 /100WBC Nucleated RBCs # 0 K/uL INR 1.00 APTT 26.3 (18.6-31.3) SEC Sodium 144 (136-145) mmol/L Potassium 3.6 (3.5-5.1) mmol/L Chloride 106 (98-107) mmol/L Carbon Dioxide 27.0 (21.0-32.0) mmol/L BUN 14 (7.0-18.0) mg/dL Creatinine 1.0 (0.6-1.0) mg/dL Est Cr Clr Drug Dosing 55.82 mL/min Estimated GFR (MDRD) 55.5 ml/min Glucose 118 H (74-106) mg/dL Hemoglobin A1c (4.5 - 6.2) % Calcium 9.7 (8.5-10.1) mg/dL Magnesium 2.1 (1.8-2.4) mg/dL Total Bilirubin 0.5 (0.2-1.0) mg/dL AST 23 (15-37) IU/L ALT 32 (14-63) IU/L Alkaline Phosphatase 109 (46-116) U/L Troponin I < 0.050 (0.000-0.056) ng/mL Total Protein 7.9 (6.4-8.2) g/dL Albumin 4.1 (3.4-5.0) g/dL Globulin 3.8 (2.6-4.0) g/dL Albumin/Globulin Ratio 1.1 (0.9-1.6) Triglycerides (0-200) mg/dL Cholesterol (50-200) mg/dL LDL Cholesterol, Calc (60-180) mg/dL VLDL Cholesterol (5-55) mg/dL HDL Cholesterol (40-60) mg/dL Cholesterol/HDL Ratio (3.3-6.0) TSH, Ultra Sensitive 3.36 (0.36-3.74) uIU/mL Urine Color Urine Appearance Urine pH (5.0-8.0) Ur Specific [place] (1.001-1.035) Urine Protein (NEGATIVE) mg/dL Urine Glucose (UA) (NEGATIVE) mg/dL Urine Ketones (NEGATIVE) mg/dL Urine Occult Blood (NEGATIVE) Urine Nitrite (NEGATIVE) Urine Bilirubin (NEGATIVE) Urine Urobilinogen (<2.0) EU/dL Ur Leukocyte Esterase (NEGATIVE) SARS-CoV-2 RNA (AUGIE) (NEGATIVE) 02/05/21 02/05/21 02/05/21 Range/Units 06:57 06:57 07:40 WBC (4.0-11.0) K/uL RBC (4.30-5.90) M/uL Hgb (12.0-16.0) g/dL Hct (36.0-46.0) % MCV (80.0-98.0) fL MCH (27.0-32.0) pg MCHC (31.0-37.0) g/dL RDW Std Deviation (28.0-62.0) fl RDW Coeff of Davie (11.0-15.0) % Plt Count (150-400) K/uL MPV (7.40-12.00) fL Neut % (Auto) (48.0-80.0) % Lymph % (Auto) (16.0-40.0) % Allen % (Auto) (0.0-15.0) % Eos % (Auto) (0.0-7.0) % Baso % (Auto) (0.0-1.5) % Neut # (Auto) (1.4-5.7) K/uL Lymph # (Auto) (0.6-2.4) K/uL Allen # (Auto) (0.0-0.8) K/uL Eos # (Auto) (0.0-0.7) K/uL Baso # (Auto) (0.0-0.1) K/uL Nucleated RBC % /100WBC Nucleated RBCs # K/uL INR APTT (18.6-31.3) SEC Sodium (136-145) mmol/L Potassium (3.5-5.1) mmol/L Chloride (98-107) mmol/L Carbon Dioxide (21.0-32.0) mmol/L BUN (7.0-18.0) mg/dL Creatinine (0.6-1.0) mg/dL Est Cr Clr Drug Dosing mL/min Estimated GFR (MDRD) ml/min Glucose (74-106) mg/dL Hemoglobin A1c 5.5 (4.5 - 6.2) % Calcium (8.5-10.1) mg/dL Magnesium (1.8-2.4) mg/dL Total Bilirubin (0.2-1.0) mg/dL AST (15-37) IU/L ALT (14-63) IU/L Alkaline Phosphatase (46-116) U/L Troponin I (0.000-0.056) ng/mL Total Protein (6.4-8.2) g/dL Albumin (3.4-5.0) g/dL Globulin (2.6-4.0) g/dL Albumin/Globulin Ratio (0.9-1.6) Triglycerides 127 (0-200) mg/dL Cholesterol 235 H (50-200) mg/dL LDL Cholesterol, Calc 149 (60-180) mg/dL VLDL Cholesterol 25 (5-55) mg/dL HDL Cholesterol 61 H (40-60) mg/dL Cholesterol/HDL Ratio 3.9 (3.3-6.0) TSH, Ultra Sensitive 3.11 (0.36-3.74) uIU/mL Urine Color Urine Appearance Urine pH (5.0-8.0) Ur Specific [place] (1.001-1.035) Urine Protein (NEGATIVE) mg/dL Urine Glucose (UA) (NEGATIVE) mg/dL Urine Ketones (NEGATIVE) mg/dL Urine Occult Blood (NEGATIVE) Urine Nitrite (NEGATIVE) Urine Bilirubin (NEGATIVE) Urine Urobilinogen (<2.0) EU/dL Ur Leukocyte Esterase (NEGATIVE) SARS-CoV-2 RNA (AUGIE) NEGATIVE (NEGATIVE) 02/05/21 Range/Units 07:56 WBC (4.0-11.0) K/uL RBC (4.30-5.90) M/uL Hgb (12.0-16.0) g/dL Hct (36.0-46.0) % MCV (80.0-98.0) fL MCH (27.0-32.0) pg MCHC (31.0-37.0) g/dL RDW Std Deviation (28.0-62.0) fl RDW Coeff of Davie (11.0-15.0) % Plt Count (150-400) K/uL MPV (7.40-12.00) fL Neut % (Auto) (48.0-80.0) % Lymph % (Auto) (16.0-40.0) % Allen % (Auto) (0.0-15.0) % Eos % (Auto) (0.0-7.0) % Baso % (Auto) (0.0-1.5) % Neut # (Auto) (1.4-5.7) K/uL Lymph # (Auto) (0.6-2.4) K/uL Allen # (Auto) (0.0-0.8) K/uL Eos # (Auto) (0.0-0.7) K/uL Baso # (Auto) (0.0-0.1) K/uL Nucleated RBC % /100WBC Nucleated RBCs # K/uL INR APTT (18.6-31.3) SEC Sodium (136-145) mmol/L Potassium (3.5-5.1) mmol/L Chloride (98-107) mmol/L Carbon Dioxide (21.0-32.0) mmol/L BUN (7.0-18.0) mg/dL Creatinine (0.6-1.0) mg/dL Est Cr Clr Drug Dosing mL/min Estimated GFR (MDRD) ml/min Glucose (74-106) mg/dL Hemoglobin A1c (4.5 - 6.2) % Calcium (8.5-10.1) mg/dL Magnesium (1.8-2.4) mg/dL Total Bilirubin (0.2-1.0) mg/dL AST (15-37) IU/L ALT (14-63) IU/L Alkaline Phosphatase (46-116) U/L Troponin I (0.000-0.056) ng/mL Total Protein (6.4-8.2) g/dL Albumin (3.4-5.0) g/dL Globulin (2.6-4.0) g/dL Albumin/Globulin Ratio (0.9-1.6) Triglycerides (0-200) mg/dL Cholesterol (50-200) mg/dL LDL Cholesterol, Calc (60-180) mg/dL VLDL Cholesterol (5-55) mg/dL HDL Cholesterol (40-60) mg/dL Cholesterol/HDL Ratio (3.3-6.0) TSH, Ultra Sensitive (0.36-3.74) uIU/mL Urine Color YELLOW Urine Appearance CLEAR Urine pH 7.5 (5.0-8.0) Ur Specific [place] 1.010 (1.001-1.035) Urine Protein NEGATIVE (NEGATIVE) mg/dL Urine Glucose (UA) NEGATIVE (NEGATIVE) mg/dL Urine Ketones NEGATIVE (NEGATIVE) mg/dL Urine Occult Blood NEGATIVE (NEGATIVE) Urine Nitrite NEGATIVE (NEGATIVE) Urine Bilirubin NEGATIVE (NEGATIVE) Urine Urobilinogen 0.2 (<2.0) EU/dL Ur Leukocyte Esterase NEGATIVE (NEGATIVE) SARS-CoV-2 RNA (AUGIE) (NEGATIVE) Result Diagrams: 02/05/21 06:57 02/05/21 06:57 Sepsis Event Note - Focused Exam Vital Signs: Vital Signs Temp Pulse Resp BP Pulse Ox 02/05/21 08:50 81 147/77 H 93 L 02/05/21 08:21 75 151/85 H 93 L 02/05/21 07:52 81 168/91 H 95 02/05/21 07:37 81 149/80 H 95 02/05/21 07:22 82 154/91 H 92 L 02/05/21 06:55 37.0 C 86 18 169/95 H 97 Consult PN Assessment/Plan Procedures: Procedures EMERGENCY DEPT VISIT (10/13/17) SARS-COV-2 COVID-19 AMP PRB (12/18/19) X-RAY EXAM OF ANKLE (10/13/17) (1) Acute CVA (cerebrovascular accident) SNOMED Code(s): 710637568, 253861249 Code(s): I63.9 - CEREBRAL INFARCTION, UNSPECIFIED Current Visit: Yes Assessment:: Acute onset LUE/LLE > facial weakness c/w acute stroke, likely subcortical/lacunar e.g. internal capsule based on deficit pattern Lipids pending PT/OT Atorvastatin 80 mg Asa 81 MRI brain pending Echo pending Telemetry Permissive HTN Problem List Initiated/Reviewed/Updated: Yes
[2021-02-05] MEDS ORDERED: Gadobenate Dimeglumine 529 MG/ML 20 ML SDV IVPUSH STA (13:20)
--- NOTE | 2021-02-05 14:03 | MR ---
INDICATION: Left arm and leg weakness. TECHNIQUE: Multiplanar multisequence noncontrast MR images acquired through the brain. COMPARISON: CT brain 02/05/2021. FINDINGS: Small area of diffusion restriction and faint T2 prolongation within the posterior right frontal lopez radiata, compatible with acute infarction. Prominence of the ventricles and sulci compatible with mild diffuse cerebral volume loss. No mass effect or midline shift. Scattered T2 FLAIR hyperintensities in the supratentorial white matter, typical for mild chronic microvascular ischemic changes. No intracranial hemorrhage or pathologic extra-axial fluid collection. The major arterial flow voids of the skullbase are preserved. The globes are symmetric. Small left maxillary sinus retention cyst or polyp. Trace left mastoid fluid. IMPRESSION: 1. Small acute infarction within the posterior right frontal lopez radiata. 2. Mild chronic microvascular ischemic changes and diffuse cerebral volume loss. Dictated by Randall Silver MD @ 02/05/2021 2:02:32 PM (Electronically Signed)
[2021-02-05] MEDS: atorvaSTATin 40 MG Tab PO SCH (20:15)
[2021-02-06 06:51] LABS: BLOOD UREA NITROGEN,BUN 12 mg/dL (7.0-18.0); CARBON DIOXIDE,CO2 24.5 mmol/L (21.0-32.0); CHLORIDE,CL 108 mmol/L (98-107); GLUCOSE RANDOM 103 mg/dL (74-106); POTASSIUM,K 3.4 mmol/L (3.5-5.1); SODIUM,NA 143 mmol/L (136-145)
[2021-02-06] MEDS ORDERED: Potassium Chloride 20 MEQ Tab.ER PO ONE (07:56)
--- NOTE | 2021-02-06 07:58 | PCM.PN ---
- General Info Date of Service: 02/06/21 Admission Dx/Problem (Free Text): Admission Diagnosis/Problem Admission Diagnosis/Problem Stroke of unknown etiology Subjective Update: Patient feeling improved today. Does feel slightly more tired than normal. Denies any headache blurred vision or double vision. Denies any chest pain or shortness of breath. She reports the left arm and leg weakness are slightly improved. She has been up ambulating with assistive gait belt walker and nurse. She did see physical therapy today awaiting occupational therapy. We will continue to work on physical therapy and ambulation due to significant weakness. Functional Status: Reports: Pain Controlled, Tolerating Diet, Ambulating, Urinating - Review of Systems General: Reports: Fatigue HEENT: Reports: No Symptoms. Denies: Headaches, Sore Throat, Visual Changes Pulmonary: Reports: No Symptoms. Denies: Shortness of Breath Cardiovascular: Reports: No Symptoms. Denies: Chest Pain Gastrointestinal: Reports: No Symptoms. Denies: Abdominal Pain, Nausea, Vomiting Genitourinary: Reports: No Symptoms Musculoskeletal: Reports: No Symptoms Skin: Reports: No Symptoms Neurological: Reports: Difficulty Walking, Weakness (Left arm and leg) Psychiatric: Reports: No Symptoms - Patient Data Vitals - Most Recent: Last Vital Signs Temp 97.3 F 02/06/21 04:00 Pulse 74 02/06/21 04:00 Resp 16 02/06/21 04:00 BP 135/78 02/06/21 04:00 Pulse Ox 97 02/06/21 04:00 Weight - Most Recent: 85.956 kg I&O - Last 24 Hours: Intake & Output 02/05/21 02/06/21 02/06/21 22:59 06:59 14:59 Intake Total 900 Output Total 600 Balance 300 Lab Results Last 24 Hours: Laboratory Results - last 24 hr 02/05/21 02/05/21 02/05/21 Range/Units 06:57 06:57 06:57 WBC (4.0-11.0) K/uL RBC (4.30-5.90) M/uL Hgb (12.0-16.0) g/dL Hct (36.0-46.0) % MCV (80.0-98.0) fL MCH (27.0-32.0) pg MCHC (31.0-37.0) g/dL RDW Std Deviation (28.0-62.0) fl RDW Coeff of [place] (11.0-15.0) % Plt Count (150-400) K/uL MPV (7.40-12.00) fL Neut % (Auto) (48.0-80.0) % Lymph % (Auto) (16.0-40.0) % Fleming % (Auto) (0.0-15.0) % Eos % (Auto) (0.0-7.0) % Baso % (Auto) (0.0-1.5) % Neut # (Auto) (1.4-5.7) K/uL Lymph # (Auto) (0.6-2.4) K/uL Fleming # (Auto) (0.0-0.8) K/uL Eos # (Auto) (0.0-0.7) K/uL Baso # (Auto) (0.0-0.1) K/uL Nucleated RBC % /100WBC Nucleated RBCs # K/uL INR 1.00 APTT 26.3 (18.6-31.3) SEC Sodium 144 (136-145) mmol/L Potassium 3.6 (3.5-5.1) mmol/L Chloride 106 (98-107) mmol/L Carbon Dioxide 27.0 (21.0-32.0) mmol/L BUN 14 (7.0-18.0) mg/dL Creatinine 1.0 (0.6-1.0) mg/dL Est Cr Clr Drug Dosing 55.82 mL/min Estimated GFR (MDRD) 55.5 ml/min Glucose 118 H (74-106) mg/dL Hemoglobin A1c (4.5 - 6.2) % Calcium 9.7 (8.5-10.1) mg/dL Magnesium 2.1 (1.8-2.4) mg/dL Total Bilirubin 0.5 (0.2-1.0) mg/dL AST 23 (15-37) IU/L ALT 32 (14-63) IU/L Alkaline Phosphatase 109 (46-116) U/L Troponin I < 0.050 (0.000-0.056) ng/mL Total Protein 7.9 (6.4-8.2) g/dL Albumin 4.1 (3.4-5.0) g/dL Globulin 3.8 (2.6-4.0) g/dL Albumin/Globulin Ratio 1.1 (0.9-1.6) Triglycerides 127 (0-200) mg/dL Cholesterol 235 H (50-200) mg/dL LDL Cholesterol, Calc 149 (60-180) mg/dL VLDL Cholesterol 25 (5-55) mg/dL HDL Cholesterol 61 H (40-60) mg/dL Cholesterol/HDL Ratio 3.9 (3.3-6.0) TSH, Ultra Sensitive 3.36 3.11 (0.36-3.74) uIU/mL Urine Color Urine Appearance Urine pH (5.0-8.0) Ur Specific [place] (1.001-1.035) Urine Protein (NEGATIVE) mg/dL Urine Glucose (UA) (NEGATIVE) mg/dL Urine Ketones (NEGATIVE) mg/dL Urine Occult Blood (NEGATIVE) Urine Nitrite (NEGATIVE) Urine Bilirubin (NEGATIVE) Urine Urobilinogen (<2.0) EU/dL Ur Leukocyte Esterase (NEGATIVE) SARS-CoV-2 RNA (AUGIE) (NEGATIVE) 02/05/21 02/05/21 02/05/21 Range/Units 06:57 07:40 07:56 WBC (4.0-11.0) K/uL RBC (4.30-5.90) M/uL Hgb (12.0-16.0) g/dL Hct (36.0-46.0) % MCV (80.0-98.0) fL MCH (27.0-32.0) pg MCHC (31.0-37.0) g/dL RDW Std Deviation (28.0-62.0) fl RDW Coeff of [place] (11.0-15.0) % Plt Count (150-400) K/uL MPV (7.40-12.00) fL Neut % (Auto) (48.0-80.0) % Lymph % (Auto) (16.0-40.0) % Fleming % (Auto) (0.0-15.0) % Eos % (Auto) (0.0-7.0) % Baso % (Auto) (0.0-1.5) % Neut # (Auto) (1.4-5.7) K/uL Lymph # (Auto) (0.6-2.4) K/uL Fleming # (Auto) (0.0-0.8) K/uL Eos # (Auto) (0.0-0.7) K/uL Baso # (Auto) (0.0-0.1) K/uL Nucleated RBC % /100WBC Nucleated RBCs # K/uL INR APTT (18.6-31.3) SEC Sodium (136-145) mmol/L Potassium (3.5-5.1) mmol/L Chloride (98-107) mmol/L Carbon Dioxide (21.0-32.0) mmol/L BUN (7.0-18.0) mg/dL Creatinine (0.6-1.0) mg/dL Est Cr Clr Drug Dosing mL/min Estimated GFR (MDRD) ml/min Glucose (74-106) mg/dL Hemoglobin A1c 5.5 (4.5 - 6.2) % Calcium (8.5-10.1) mg/dL Magnesium (1.8-2.4) mg/dL Total Bilirubin (0.2-1.0) mg/dL AST (15-37) IU/L ALT (14-63) IU/L Alkaline Phosphatase (46-116) U/L Troponin I (0.000-0.056) ng/mL Total Protein (6.4-8.2) g/dL Albumin (3.4-5.0) g/dL Globulin (2.6-4.0) g/dL Albumin/Globulin Ratio (0.9-1.6) Triglycerides (0-200) mg/dL Cholesterol (50-200) mg/dL LDL Cholesterol, Calc (60-180) mg/dL VLDL Cholesterol (5-55) mg/dL HDL Cholesterol (40-60) mg/dL Cholesterol/HDL Ratio (3.3-6.0) TSH, Ultra Sensitive (0.36-3.74) uIU/mL Urine Color YELLOW Urine Appearance CLEAR Urine pH 7.5 (5.0-8.0) Ur Specific [place] 1.010 (1.001-1.035) Urine Protein NEGATIVE (NEGATIVE) mg/dL Urine Glucose (UA) NEGATIVE (NEGATIVE) mg/dL Urine Ketones NEGATIVE (NEGATIVE) mg/dL Urine Occult Blood NEGATIVE (NEGATIVE) Urine Nitrite NEGATIVE (NEGATIVE) Urine Bilirubin NEGATIVE (NEGATIVE) Urine Urobilinogen 0.2 (<2.0) EU/dL Ur Leukocyte Esterase NEGATIVE (NEGATIVE) SARS-CoV-2 RNA (AUGIE) NEGATIVE (NEGATIVE) 02/06/21 02/06/21 Range/Units 05:38 05:38 WBC 5.40 (4.0-11.0) K/uL RBC 4.38 (4.30-5.90) M/uL Hgb 13.1 (12.0-16.0) g/dL Hct 39.7 (36.0-46.0) % MCV 90.6 (80.0-98.0) fL MCH 29.9 (27.0-32.0) pg MCHC 33.0 (31.0-37.0) g/dL RDW Std Deviation 44.6 (28.0-62.0) fl RDW Coeff of [place] 13 (11.0-15.0) % Plt Count 201 (150-400) K/uL MPV 11.10 (7.40-12.00) fL Neut % (Auto) 57.0 (48.0-80.0) % Lymph % (Auto) 25.0 (16.0-40.0) % Fleming % (Auto) 12.0 (0.0-15.0) % Eos % (Auto) 5.4 (0.0-7.0) % Baso % (Auto) 0.6 (0.0-1.5) % Neut # (Auto) 3.1 (1.4-5.7) K/uL Lymph # (Auto) 1.4 (0.6-2.4) K/uL Fleming # (Auto) 0.7 (0.0-0.8) K/uL Eos # (Auto) 0.3 (0.0-0.7) K/uL Baso # (Auto) 0.0 (0.0-0.1) K/uL Nucleated RBC % 0.0 /100WBC Nucleated RBCs # 0 K/uL INR APTT (18.6-31.3) SEC Sodium 143 (136-145) mmol/L Potassium 3.4 L (3.5-5.1) mmol/L Chloride 108 H (98-107) mmol/L Carbon Dioxide 24.5 (21.0-32.0) mmol/L BUN 12 (7.0-18.0) mg/dL Creatinine 0.8 (0.6-1.0) mg/dL Est Cr Clr Drug Dosing 67.27 mL/min Estimated GFR (MDRD) > 60.0 ml/min Glucose 103 (74-106) mg/dL Hemoglobin A1c (4.5 - 6.2) % Calcium 9.2 (8.5-10.1) mg/dL Magnesium 2.1 (1.8-2.4) mg/dL Total Bilirubin (0.2-1.0) mg/dL AST (15-37) IU/L ALT (14-63) IU/L Alkaline Phosphatase (46-116) U/L Troponin I (0.000-0.056) ng/mL Total Protein (6.4-8.2) g/dL Albumin (3.4-5.0) g/dL Globulin (2.6-4.0) g/dL Albumin/Globulin Ratio (0.9-1.6) Triglycerides (0-200) mg/dL Cholesterol (50-200) mg/dL LDL Cholesterol, Calc (60-180) mg/dL VLDL Cholesterol (5-55) mg/dL HDL Cholesterol (40-60) mg/dL Cholesterol/HDL Ratio (3.3-6.0) TSH, Ultra Sensitive (0.36-3.74) uIU/mL Urine Color Urine Appearance Urine pH (5.0-8.0) Ur Specific [place] (1.001-1.035) Urine Protein (NEGATIVE) mg/dL Urine Glucose (UA) (NEGATIVE) mg/dL Urine Ketones (NEGATIVE) mg/dL Urine Occult Blood (NEGATIVE) Urine Nitrite (NEGATIVE) Urine Bilirubin (NEGATIVE) Urine Urobilinogen (<2.0) EU/dL Ur Leukocyte Esterase (NEGATIVE) SARS-CoV-2 RNA (AUGIE) (NEGATIVE) Med Orders - Current: Current Medications Acetaminophen (Acetaminophen 325 Mg Tab) 650 mg PO Q4H PRN PRN Reason: Pain (Mild 1-3)/fever Aspirin (Aspirin 81 Mg Tab.Chew) 81 mg PO DAILY JARROD Atorvastatin Calcium (Atorvastatin 40 Mg Tab) 80 mg PO BEDTIME JARROD Last Admin: 02/05/21 20:15 Dose: 80 mg Documented by: Docusate Sodium (Docusate Sodium 100 Mg Cap) 100 mg PO BID PRN PRN Reason: Constipation Escitalopram Oxalate (Escitalopram 10 Mg Tab) 20 mg PO DAILY JARROD Ondansetron HCl (Ondansetron 4 Mg/2 Ml Sdv) 4 mg IVPUSH Q4H PRN PRN Reason: Nausea Potassium Chloride (Potassium Chloride 20 Meq Tab.Er) 20 meq PO ONETIME ONE Stop: 02/06/21 07:57 Sodium Chloride (Sodium Chloride 0.9% 2.5 Ml Syringe) 2.5 ml FLUSH ASDIRECTED PRN PRN Reason: Keep Vein Open Tolterodine Tartrate (Tolterodine 2 Mg Cap.Er) 2 mg PO DAILY JARROD Discontinued Medications Aspirin (Aspirin 81 Mg Tab.Chew) 324 mg PO ONETIME ONE Stop: 02/05/21 07:19 Last Admin: 02/05/21 07:29 Dose: 324 mg Documented by: Gadobenate Dimeglumine (Gadobenate Dimeglumine 529 Mg/Ml 20 Ml Sdv) 20 ml IVPUSH ONETIME STA Stop: 02/05/21 13:21 Last Admin: 02/05/21 13:21 Dose: 17 ml Documented by: Sodium Chloride (Normal Saline) 1,000 mls @ 100 mls/hr IV ASDIRECTED JARROD Last Admin: 02/05/21 07:30 Dose: 100 mls/hr Documented by: Influenza Virus Vaccine (Flu Vacc [id number](65yr Up)/Pf 240 Mcg/0.7 Ml Syringe) 240 mcg IM .ONCE ONE Stop: 02/05/21 13:46 Iopamidol (Iopamidol 755 Mg/Ml 500 Ml Multipack Bottle) 100 ml IVPUSH ONETIME STA Stop: 02/05/21 07:19 Last Admin: 02/05/21 07:19 Dose: 100 ml Documented by: Sodium Chloride (Sodium Chloride 0.9% 10 Ml Syringe) 10 ml FLUSH ASDIRECTED PRN PRN Reason: Keep Vein Open Last Admin: 02/05/21 07:30 Dose: 10 ml Documented by: Sodium Chloride (Sodium Chloride 0.9% 2.5 Ml Syringe) 2.5 ml FLUSH ASDIRECTED PRN PRN Reason: Keep Vein Open Last Admin: 02/05/21 07:30 Dose: 2.5 ml Documented by: - Exam Quality Assessment: DVT Prophylaxis. No: Supplemental Oxygen General: Alert, Oriented, Cooperative, No Acute Distress HEENT: Pupils Equal, Pupils Reactive Lungs: Clear to Auscultation, Normal Respiratory Effort Cardiovascular: Regular Rate, Regular Rhythm GI/Abdominal Exam: Normal Bowel Sounds, Soft, Non-Tender Back Exam: Normal Inspection, Full Range of Motion Extremities: Normal Inspection, Normal Range of Motion, Non-Tender, No Pedal Edema Skin: Warm, Dry Neurological: Normal Speech. No: Normal Gait, Strength Equal Bilateral (Continues to have left-sided upper and lower extremity weakness) Psy/Mental Status: Alert, Normal Affect, Normal Mood - Patient Data Lab Results Last 24 hrs: Laboratory Results - last 24 hr 02/05/21 02/05/21 02/05/21 Range/Units 06:57 06:57 06:57 WBC (4.0-11.0) K/uL RBC (4.30-5.90) M/uL Hgb (12.0-16.0) g/dL Hct (36.0-46.0) % MCV (80.0-98.0) fL MCH (27.0-32.0) pg MCHC (31.0-37.0) g/dL RDW Std Deviation (28.0-62.0) fl RDW Coeff of [place] (11.0-15.0) % Plt Count (150-400) K/uL MPV (7.40-12.00) fL Neut % (Auto) (48.0-80.0) % Lymph % (Auto) (16.0-40.0) % Fleming % (Auto) (0.0-15.0) % Eos % (Auto) (0.0-7.0) % Baso % (Auto) (0.0-1.5) % Neut # (Auto) (1.4-5.7) K/uL Lymph # (Auto) (0.6-2.4) K/uL Fleming # (Auto) (0.0-0.8) K/uL Eos # (Auto) (0.0-0.7) K/uL Baso # (Auto) (0.0-0.1) K/uL Nucleated RBC % /100WBC Nucleated RBCs # K/uL INR 1.00 APTT 26.3 (18.6-31.3) SEC Sodium 144 (136-145) mmol/L Potassium 3.6 (3.5-5.1) mmol/L Chloride 106 (98-107) mmol/L Carbon Dioxide 27.0 (21.0-32.0) mmol/L BUN 14 (7.0-18.0) mg/dL Creatinine 1.0 (0.6-1.0) mg/dL Est Cr Clr Drug Dosing 55.82 mL/min Estimated GFR (MDRD) 55.5 ml/min Glucose 118 H (74-106) mg/dL Hemoglobin A1c (4.5 - 6.2) % Calcium 9.7 (8.5-10.1) mg/dL Magnesium 2.1 (1.8-2.4) mg/dL Total Bilirubin 0.5 (0.2-1.0) mg/dL AST 23 (15-37) IU/L ALT 32 (14-63) IU/L Alkaline Phosphatase 109 (46-116) U/L Troponin I < 0.050 (0.000-0.056) ng/mL Total Protein 7.9 (6.4-8.2) g/dL Albumin 4.1 (3.4-5.0) g/dL Globulin 3.8 (2.6-4.0) g/dL Albumin/Globulin Ratio 1.1 (0.9-1.6) Triglycerides 127 (0-200) mg/dL Cholesterol 235 H (50-200) mg/dL LDL Cholesterol, Calc 149 (60-180) mg/dL VLDL Cholesterol 25 (5-55) mg/dL HDL Cholesterol 61 H (40-60) mg/dL Cholesterol/HDL Ratio 3.9 (3.3-6.0) TSH, Ultra Sensitive 3.36 3.11 (0.36-3.74) uIU/mL Urine Color Urine Appearance Urine pH (5.0-8.0) Ur Specific [place] (1.001-1.035) Urine Protein (NEGATIVE) mg/dL Urine Glucose (UA) (NEGATIVE) mg/dL Urine Ketones (NEGATIVE) mg/dL Urine Occult Blood (NEGATIVE) Urine Nitrite (NEGATIVE) Urine Bilirubin (NEGATIVE) Urine Urobilinogen (<2.0) EU/dL Ur Leukocyte Esterase (NEGATIVE) SARS-CoV-2 RNA (AUGIE) (NEGATIVE) 02/05/21 02/05/21 02/05/21 Range/Units 06:57 07:40 07:56 WBC (4.0-11.0) K/uL RBC (4.30-5.90) M/uL Hgb (12.0-16.0) g/dL Hct (36.0-46.0) % MCV (80.0-98.0) fL MCH (27.0-32.0) pg MCHC (31.0-37.0) g/dL RDW Std Deviation (28.0-62.0) fl RDW Coeff of [place] (11.0-15.0) % Plt Count (150-400) K/uL MPV (7.40-12.00) fL Neut % (Auto) (48.0-80.0) % Lymph % (Auto) (16.0-40.0) % Fleming % (Auto) (0.0-15.0) % Eos % (Auto) (0.0-7.0) % Baso % (Auto) (0.0-1.5) % Neut # (Auto) (1.4-5.7) K/uL Lymph # (Auto) (0.6-2.4) K/uL Fleming # (Auto) (0.0-0.8) K/uL Eos # (Auto) (0.0-0.7) K/uL Baso # (Auto) (0.0-0.1) K/uL Nucleated RBC % /100WBC Nucleated RBCs # K/uL INR APTT (18.6-31.3) SEC Sodium (136-145) mmol/L Potassium (3.5-5.1) mmol/L Chloride (98-107) mmol/L Carbon Dioxide (21.0-32.0) mmol/L BUN (7.0-18.0) mg/dL Creatinine (0.6-1.0) mg/dL Est Cr Clr Drug Dosing mL/min Estimated GFR (MDRD) ml/min Glucose (74-106) mg/dL Hemoglobin A1c 5.5 (4.5 - 6.2) % Calcium (8.5-10.1) mg/dL Magnesium (1.8-2.4) mg/dL Total Bilirubin (0.2-1.0) mg/dL AST (15-37) IU/L ALT (14-63) IU/L Alkaline Phosphatase (46-116) U/L Troponin I (0.000-0.056) ng/mL Total Protein (6.4-8.2) g/dL Albumin (3.4-5.0) g/dL Globulin (2.6-4.0) g/dL Albumin/Globulin Ratio (0.9-1.6) Triglycerides (0-200) mg/dL Cholesterol (50-200) mg/dL LDL Cholesterol, Calc (60-180) mg/dL VLDL Cholesterol (5-55) mg/dL HDL Cholesterol (40-60) mg/dL Cholesterol/HDL Ratio (3.3-6.0) TSH, Ultra Sensitive (0.36-3.74) uIU/mL Urine Color YELLOW Urine Appearance CLEAR Urine pH 7.5 (5.0-8.0) Ur Specific [place] 1.010 (1.001-1.035) Urine Protein NEGATIVE (NEGATIVE) mg/dL Urine Glucose (UA) NEGATIVE (NEGATIVE) mg/dL Urine Ketones NEGATIVE (NEGATIVE) mg/dL Urine Occult Blood NEGATIVE (NEGATIVE) Urine Nitrite NEGATIVE (NEGATIVE) Urine Bilirubin NEGATIVE (NEGATIVE) Urine Urobilinogen 0.2 (<2.0) EU/dL Ur Leukocyte Esterase NEGATIVE (NEGATIVE) SARS-CoV-2 RNA (AUGIE) NEGATIVE (NEGATIVE) 02/06/21 02/06/21 Range/Units 05:38 05:38 WBC 5.40 (4.0-11.0) K/uL RBC 4.38 (4.30-5.90) M/uL Hgb 13.1 (12.0-16.0) g/dL Hct 39.7 (36.0-46.0) % MCV 90.6 (80.0-98.0) fL MCH 29.9 (27.0-32.0) pg MCHC 33.0 (31.0-37.0) g/dL RDW Std Deviation 44.6 (28.0-62.0) fl RDW Coeff of [place] 13 (11.0-15.0) % Plt Count 201 (150-400) K/uL MPV 11.10 (7.40-12.00) fL Neut % (Auto) 57.0 (48.0-80.0) % Lymph % (Auto) 25.0 (16.0-40.0) % Fleming % (Auto) 12.0 (0.0-15.0) % Eos % (Auto) 5.4 (0.0-7.0) % Baso % (Auto) 0.6 (0.0-1.5) % Neut # (Auto) 3.1 (1.4-5.7) K/uL Lymph # (Auto) 1.4 (0.6-2.4) K/uL Fleming # (Auto) 0.7 (0.0-0.8) K/uL Eos # (Auto) 0.3 (0.0-0.7) K/uL Baso # (Auto) 0.0 (0.0-0.1) K/uL Nucleated RBC % 0.0 /100WBC Nucleated RBCs # 0 K/uL INR APTT (18.6-31.3) SEC Sodium 143 (136-145) mmol/L Potassium 3.4 L (3.5-5.1) mmol/L Chloride 108 H (98-107) mmol/L Carbon Dioxide 24.5 (21.0-32.0) mmol/L BUN 12 (7.0-18.0) mg/dL Creatinine 0.8 (0.6-1.0) mg/dL Est Cr Clr Drug Dosing 67.27 mL/min Estimated GFR (MDRD) > 60.0 ml/min Glucose 103 (74-106) mg/dL Hemoglobin A1c (4.5 - 6.2) % Calcium 9.2 (8.5-10.1) mg/dL Magnesium 2.1 (1.8-2.4) mg/dL Total Bilirubin (0.2-1.0) mg/dL AST (15-37) IU/L ALT (14-63) IU/L Alkaline Phosphatase (46-116) U/L Troponin I (0.000-0.056) ng/mL Total Protein (6.4-8.2) g/dL Albumin (3.4-5.0) g/dL Globulin (2.6-4.0) g/dL Albumin/Globulin Ratio (0.9-1.6) Triglycerides (0-200) mg/dL Cholesterol (50-200) mg/dL LDL Cholesterol, Calc (60-180) mg/dL VLDL Cholesterol (5-55) mg/dL HDL Cholesterol (40-60) mg/dL Cholesterol/HDL Ratio (3.3-6.0) TSH, Ultra Sensitive (0.36-3.74) uIU/mL Urine Color Urine Appearance Urine pH (5.0-8.0) Ur Specific [place] (1.001-1.035) Urine Protein (NEGATIVE) mg/dL Urine Glucose (UA) (NEGATIVE) mg/dL Urine Ketones (NEGATIVE) mg/dL Urine Occult Blood (NEGATIVE) Urine Nitrite (NEGATIVE) Urine Bilirubin (NEGATIVE) Urine Urobilinogen (<2.0) EU/dL Ur Leukocyte Esterase (NEGATIVE) SARS-CoV-2 RNA (AUGIE) (NEGATIVE) Result Diagrams: 02/06/21 05:38 02/06/21 05:38 Sepsis Event Note - Evaluation Sepsis Screening Result: No Definite Risk - Focused Exam Vital Signs: Vital Signs Temp Pulse Resp BP Pulse Ox 02/06/21 04:00 97.3 F 74 16 135/78 97 02/06/21 00:00 97.2 F 72 16 138/81 95 02/05/21 20:00 97.4 F 77 16 147/89 H 96 - Problem List & Annotations (1) Acute CVA (cerebrovascular accident) SNOMED Code(s): 662045518, 428931368 Code(s): I63.9 - CEREBRAL INFARCTION, UNSPECIFIED Status: Acute Current Visit: Yes (2) Left hemiparesis SNOMED Code(s): 676640558 Code(s): G81.94 - HEMIPLEGIA, UNSPECIFIED AFFECTING LEFT NONDOMINANT SIDE Status: Acute Current Visit: Yes (3) Depression with anxiety SNOMED Code(s): 780898976 Code(s): F41.8 - OTHER SPECIFIED ANXIETY DISORDERS Status: Chronic Current Visit: Yes (4) Bladder incontinence SNOMED Code(s): 820798985 Code(s): R32 - UNSPECIFIED URINARY INCONTINENCE Status: Chronic Current Visit: Yes (5) Hyperlipidemia SNOMED Code(s): 83346840 Code(s): E78.5 - HYPERLIPIDEMIA, UNSPECIFIED Status: Acute Current Visit: Yes - Problem List Review Problem List Initiated/Reviewed/Updated: Yes - My Orders Last 24 Hours: My Active Orders 02/05/21 09:41 Telemetry Monitoring [Cardiac Monitoring] [RC] Q8H 02/05/21 09:56 Intake and Output [RC] QSHIFT Oxygen Therapy [RC] PRN Up With Assistance [RC] ASDIRECTED VTE/DVT Education [RC] PER UNIT ROUTINE Vital Signs [RC] Q4H OT Evaluation and Treatment [CONS] Routine PT Evaluation and Treatment [CONS] Routine Echo Comp wo Cont [US] Urgent Acetaminophen [TylenoL] 650 mg PO Q4H PRN Docusate Sodium [Colace] 100 mg PO BID PRN Ondansetron [Zofran] 4 mg IVPUSH Q4H PRN Sodium Chloride 0.9% [Saline Flush] 2.5 ml FLUSH ASDIRECTED PRN Saline Lock Insert [OM.PC] Routine 02/05/21 10:03 NIH Stroke Scale [RC] Q12HR 02/05/21 Lunch Heart Healthy Diet [DIET] 02/05/21 11:51 Notify Provider Consults [RC] ASDIRECTED Consult to Physician [CONS] Routine 02/05/21 14:23 Resuscitation Status Routine 02/05/21 21:00 atorvaSTATin [Lipitor] 80 mg PO BEDTIME 02/06/21 07:56 Potassium Chloride [Klor-Con M20] 20 meq PO ONETIME ONE 02/06/21 09:00 Aspirin 81 mg PO DAILY Escitalopram [Lexapro] 20 mg PO DAILY Tolterodine [Detrol LA 24 Hr] 2 mg PO DAILY - Plan Plan:: This 65-year-old female admitted with suspected acute CVA with left-sided hemiparesis 1. Acute CVA -Dr. Oneil consulted appreciate her assistance -LDL 149, HDL 61, A1c 5.5, TSH 3.11 -MRI brain reveals small acute infarction within the posterior right frontal lopez radiata. Patient was made aware of this yesterday. -echo reveals LV EF 60-65%, Normal R ventricular systolic function, Aortic valve is structurally normal and tricuspid, No intracardiac source of embolism, no regional wall motion abnormalities. -Continue telemetry no arrhythmias noted overnight -Zio patch on discharge -Continue aspirin daily -Continue atorvastatin 80 mg daily -PT OT to evaluate and treat no speech therapy needed at this time is no swallow or speech difficulties noted -PT did evaluate patient and recommended detention facility for rehab ilitation, will monitor patient over the weekend to see improvements in ability to return home. Patient very motivated with physical therapy. VTE prophylaxis: Lovenox CODE STATUS: DNR/DNI per patient Dispo 2 to 3 days
[2021-02-06] MEDS: Escitalopram 10 MG Tab PO SCH (08:04)
[2021-02-06] MEDS: Aspirin 81 MG Tab.Chew PO SCH (08:05)
[2021-02-06] MEDS: Tolterodine 2 MG Cap.ER PO SCH (08:08)
[2021-02-06] MEDS: Enoxaparin 40 MG/0.4 ML Syringe SUBCUT SCH (08:13)
--- NOTE | 2021-02-06 12:25 | PCM.CONSN ---
- General Info Date of Service: 02/06/21 Subjective Update: She endorses being a little stronger today. She was walked with walker with assist. - Patient Data Vitals - Most Recent: Last Vital Signs Temp 36.4 C 02/06/21 08:00 Pulse 70 02/06/21 08:00 Resp 15 02/06/21 08:00 BP 125/54 L 02/06/21 08:00 Pulse Ox 94 L 02/06/21 08:00 Weight - Most Recent: 85.956 kg I&O - Last 24 Hours: Intake & Output 02/05/21 02/06/21 02/06/21 22:59 06:59 14:59 Intake Total 900 Output Total 600 Balance 300 Lab Results Last 24 Hours: Laboratory Results - last 24 hr 02/06/21 02/06/21 Range/Units 05:38 05:38 WBC 5.40 (4.0-11.0) K/uL RBC 4.38 (4.30-5.90) M/uL Hgb 13.1 (12.0-16.0) g/dL Hct 39.7 (36.0-46.0) % MCV 90.6 (80.0-98.0) fL MCH 29.9 (27.0-32.0) pg MCHC 33.0 (31.0-37.0) g/dL RDW Std Deviation 44.6 (28.0-62.0) fl RDW Coeff of [place] 13 (11.0-15.0) % Plt Count 201 (150-400) K/uL MPV 11.10 (7.40-12.00) fL Neut % (Auto) 57.0 (48.0-80.0) % Lymph % (Auto) 25.0 (16.0-40.0) % [place] % (Auto) 12.0 (0.0-15.0) % Eos % (Auto) 5.4 (0.0-7.0) % Baso % (Auto) 0.6 (0.0-1.5) % Neut # (Auto) 3.1 (1.4-5.7) K/uL Lymph # (Auto) 1.4 (0.6-2.4) K/uL [place] # (Auto) 0.7 (0.0-0.8) K/uL Eos # (Auto) 0.3 (0.0-0.7) K/uL Baso # (Auto) 0.0 (0.0-0.1) K/uL Nucleated RBC % 0.0 /100WBC Nucleated RBCs # 0 K/uL Sodium 143 (136-145) mmol/L Potassium 3.4 L (3.5-5.1) mmol/L Chloride 108 H (98-107) mmol/L Carbon Dioxide 24.5 (21.0-32.0) mmol/L BUN 12 (7.0-18.0) mg/dL Creatinine 0.8 (0.6-1.0) mg/dL Est Cr Clr Drug Dosing 67.27 mL/min Estimated GFR (MDRD) > 60.0 ml/min Glucose 103 (74-106) mg/dL Calcium 9.2 (8.5-10.1) mg/dL Magnesium 2.1 (1.8-2.4) mg/dL Med Orders - Current: Current Medications Acetaminophen (Acetaminophen 325 Mg Tab) 650 mg PO Q4H PRN PRN Reason: Pain (Mild 1-3)/fever Aspirin (Aspirin 81 Mg Tab.Chew) 81 mg PO DAILY [facility] Last Admin: 02/06/21 08:05 Dose: 81 mg Documented by: Atorvastatin Calcium (Atorvastatin 40 Mg Tab) 80 mg PO BEDTIME [facility] Last Admin: 02/05/21 20:15 Dose: 80 mg Documented by: Docusate Sodium (Docusate Sodium 100 Mg Cap) 100 mg PO BID PRN PRN Reason: Constipation Enoxaparin Sodium (Enoxaparin 40 Mg/0.4 Ml Syringe) 40 mg SUBCUT Q24H [facility] Last Admin: 02/06/21 08:13 Dose: 40 mg Documented by: Escitalopram Oxalate (Escitalopram 10 Mg Tab) 20 mg PO DAILY [facility] Last Admin: 02/06/21 08:04 Dose: 20 mg Documented by: Ondansetron HCl (Ondansetron 4 Mg/2 Ml Sdv) 4 mg IVPUSH Q4H PRN PRN Reason: Nausea Sodium Chloride (Sodium Chloride 0.9% 2.5 Ml Syringe) 2.5 ml FLUSH ASDIRECTED PRN PRN Reason: Keep Vein Open Tolterodine Tartrate (Tolterodine 2 Mg Cap.Er) 2 mg PO DAILY [facility] Last Admin: 02/06/21 08:08 Dose: 2 mg Documented by: Discontinued Medications Aspirin (Aspirin 81 Mg Tab.Chew) 324 mg PO ONETIME ONE Stop: 02/05/21 07:19 Last Admin: 02/05/21 07:29 Dose: 324 mg Documented by: Gadobenate Dimeglumine (Gadobenate Dimeglumine 529 Mg/Ml 20 Ml Sdv) 20 ml IVPUSH ONETIME STA Stop: 02/05/21 13:21 Last Admin: 02/05/21 13:21 Dose: 17 ml Documented by: Sodium Chloride (Normal Saline) 1,000 mls @ 100 mls/hr IV ASDIRECTED [facility] Last Admin: 02/05/21 07:30 Dose: 100 mls/hr Documented by: Influenza Virus Vaccine (Flu Vacc [id number](65yr Up)/Pf 240 Mcg/0.7 Ml Syringe) 240 mcg IM .ONCE ONE Stop: 02/05/21 13:46 Iopamidol (Iopamidol 755 Mg/Ml 500 Ml Multipack Bottle) 100 ml IVPUSH ONETIME STA Stop: 02/05/21 07:19 Last Admin: 02/05/21 07:19 Dose: 100 ml Documented by: Potassium Chloride (Potassium Chloride 20 Meq Tab.Er) 20 meq PO ONETIME ONE Stop: 02/06/21 07:57 Last Admin: 02/06/21 08:05 Dose: 20 meq Documented by: Sodium Chloride (Sodium Chloride 0.9% 10 Ml Syringe) 10 ml FLUSH ASDIRECTED PRN PRN Reason: Keep Vein Open Last Admin: 02/05/21 07:30 Dose: 10 ml Documented by: Sodium Chloride (Sodium Chloride 0.9% 2.5 Ml Syringe) 2.5 ml FLUSH ASDIRECTED PRN PRN Reason: Keep Vein Open Last Admin: 02/05/21 07:30 Dose: 2.5 ml Documented by: - Exam Physical Findings Comments:: Cranial Nerves: . Gaze conjugate, EOMI. Sensation intact and symmetric to light touch. Face symmetric, Palate elevates symmetrically. Normal shrug bilaterally. Tongue protrudes midline Motor: Weakness on left as follows: Left triceps 4+, WE 4+, WF 5+, finger abduction 3, hip flexion 4-, knee extension 4+, knee flexion 4, ankle DF 4+ Sensation: Sensation is intact to temp and light touch. No extinction. . Deep tendon reflexes: Normoactive throughout. Coordination: Finger to nose limited by weakness on left Gait: not assessed Sepsis Event Note - Evaluation Sepsis Screening Result: No Definite Risk - Focused Exam Vital Signs: Vital Signs Temp Pulse Resp BP Pulse Ox 02/06/21 08:00 36.4 C 70 15 125/54 L 94 L 02/06/21 04:00 36.3 C 74 16 135/78 97 Consult PN Assessment/Plan Procedures: Procedures EMERGENCY DEPT VISIT (10/13/17) SARS-COV-2 COVID-19 AMP PRB (12/18/19) X-RAY EXAM OF [place] (10/13/17) (1) Acute CVA (cerebrovascular accident) SNOMED Code(s): 160453221, 139864543 Code(s): I63.9 - CEREBRAL INFARCTION, UNSPECIFIED Current Visit: Yes Assessment:: LDL 149, A1c 5.5 MRI brain 02/05/2021 acute infarct right frontal white matter, scattered t2 hyperintensity in white matter c/w small vessel changes. Echo normal EF, no wall motion abnormalities Impression: Acute stroke right lopez radiata, more likely small vessel but could be embolic. Examination today showed improved strength in LUE/LLE today; dysarthria and facial weakness resolved. Based on exam, size and location of stroke, prognosis for full or near full recovery is good. Continue atorvastatin, ASA PT/OT following. She would likely benefit from short term SNF/rehab admission for rehab/PT Telemetry, Zio patch upon discharge Problem List Initiated/Reviewed/Updated: Yes
[2021-02-06] MEDS: atorvaSTATin 40 MG Tab PO SCH (20:33)
[2021-02-07] MEDS: Enoxaparin 40 MG/0.4 ML Syringe SUBCUT SCH (08:16)
[2021-02-07] MEDS: Tolterodine 2 MG Cap.ER PO SCH (08:16)
[2021-02-07] MEDS: Escitalopram 10 MG Tab PO SCH (08:16)
[2021-02-07] MEDS: Aspirin 81 MG Tab.Chew PO SCH (08:16)
[2021-02-07 09:18] LABS: BLOOD UREA NITROGEN,BUN 11 mg/dL (7.0-18.0); CARBON DIOXIDE,CO2 25.8 mmol/L (21.0-32.0); CHLORIDE,CL 108 mmol/L (98-107); GLUCOSE RANDOM 107 mg/dL (74-106); POTASSIUM,K 3.9 mmol/L (3.5-5.1); SODIUM,NA 143 mmol/L (136-145)
--- NOTE | 2021-02-07 10:00 | CT ---
INDICATION: Headache. Small acute infarction in the posterior right frontal lopez radiata on 02/05/2021 MRI brain. TECHNIQUE: Head CT without contrast. COMPARISON: 02/05/2021 MRI brain FINDINGS: CSF spaces: Prominence of the ventricles and the sulci likely due to age related volume loss. Brain parenchyma: Periventricular and subcortical white matter hypoattenuation is non specific but likely due to mild chronic small vessel ischemic changes, similar to prior. Focal hypoattenuation in the posterior right frontal lopez radiata corresponding to acute ischemia on MRI. No sign of mass, hemorrhage, or midline shift. Skull base and calvarium: The visualized paranasal sinuses and mastoid air cells demonstrate no acute or significant findings. The visualized orbits are grossly unremarkable. No skull fractures. IMPRESSION: : 1. Focal hypoattenuation corresponding to acute infarction in the posterior right frontal lopez radiata identified on recent brain MRI. 2. No acute hemorrhage. 3. Mild chronic small vessel ischemic changes are similar to prior. Please note that all CT scans at this facility use dose modulation, iterative reconstruction, and/or weight-based dosing when appropriate to reduce radiation dose to as low as reasonably achievable. Dictated by Jose Birmingham MD @ 02/07/2021 9:58:53 AM (Electronically Signed)
--- NOTE | 2021-02-07 11:20 | PCM.PN ---
- General Info Date of Service: 02/07/21 - Review of Systems Systems Review Comment:: reports right arm is weaker when she woke up this morning compared to last night, but similar to when she first arrived. - Patient Data Vitals - Most Recent: Last Vital Signs Temp 36.1 C 02/07/21 08:08 Pulse 65 02/07/21 08:08 Resp 16 02/07/21 08:08 BP 171/78 H 02/07/21 08:08 Pulse Ox 94 L 02/07/21 08:08 Weight - Most Recent: 85.956 kg I&O - Last 24 Hours: Intake & Output 02/06/21 02/07/21 02/07/21 22:59 06:59 14:59 Intake Total 570 600 Output Total 600 700 Balance -30 -100 Lab Results Last 24 Hours: Laboratory Results - last 24 hr 02/07/21 02/07/21 Range/Units 08:50 08:50 WBC 6.44 (4.0-11.0) K/uL RBC 4.65 (4.30-5.90) M/uL Hgb 13.9 (12.0-16.0) g/dL Hct 41.7 (36.0-46.0) % MCV 89.7 (80.0-98.0) fL MCH 29.9 (27.0-32.0) pg MCHC 33.3 (31.0-37.0) g/dL RDW Std Deviation 43.2 (28.0-62.0) fl RDW Coeff of [place] 13 (11.0-15.0) % Plt Count 225 (150-400) K/uL MPV 10.60 (7.40-12.00) fL Neut % (Auto) 64.1 (48.0-80.0) % Lymph % (Auto) 22.5 (16.0-40.0) % [place] % (Auto) 9.2 (0.0-15.0) % Eos % (Auto) 3.7 (0.0-7.0) % Baso % (Auto) 0.5 (0.0-1.5) % Neut # (Auto) 4.1 (1.4-5.7) K/uL Lymph # (Auto) 1.5 (0.6-2.4) K/uL [place] # (Auto) 0.6 (0.0-0.8) K/uL Eos # (Auto) 0.2 (0.0-0.7) K/uL Baso # (Auto) 0.0 (0.0-0.1) K/uL Nucleated RBC % 0.0 /100WBC Nucleated RBCs # 0 K/uL Sodium 143 (136-145) mmol/L Potassium 3.9 (3.5-5.1) mmol/L Chloride 108 H (98-107) mmol/L Carbon Dioxide 25.8 (21.0-32.0) mmol/L BUN 11 (7.0-18.0) mg/dL Creatinine 0.8 (0.6-1.0) mg/dL Est Cr Clr Drug Dosing 67.27 mL/min Estimated GFR (MDRD) > 60.0 ml/min Glucose 107 H (74-106) mg/dL Calcium 9.7 (8.5-10.1) mg/dL Med Orders - Current: Current Medications Acetaminophen (Acetaminophen 325 Mg Tab) 650 mg PO Q4H PRN PRN Reason: Pain (Mild 1-3)/fever Aspirin (Aspirin 81 Mg Tab.Chew) 81 mg PO DAILY [facility] Last Admin: 02/07/21 08:16 Dose: 81 mg Documented by: Atorvastatin Calcium (Atorvastatin 40 Mg Tab) 80 mg PO BEDTIME [facility] Last Admin: 02/06/21 20:33 Dose: 80 mg Documented by: Docusate Sodium (Docusate Sodium 100 Mg Cap) 100 mg PO BID PRN PRN Reason: Constipation Enoxaparin Sodium (Enoxaparin 40 Mg/0.4 Ml Syringe) 40 mg SUBCUT Q24H [facility] Last Admin: 02/07/21 08:16 Dose: 40 mg Documented by: Escitalopram Oxalate (Escitalopram 10 Mg Tab) 20 mg PO DAILY [facility] Last Admin: 02/07/21 08:16 Dose: 20 mg Documented by: Ondansetron HCl (Ondansetron 4 Mg/2 Ml Sdv) 4 mg IVPUSH Q4H PRN PRN Reason: Nausea Sodium Chloride (Sodium Chloride 0.9% 2.5 Ml Syringe) 2.5 ml FLUSH ASDIRECTED PRN PRN Reason: Keep Vein Open Tolterodine Tartrate (Tolterodine 2 Mg Cap.Er) 2 mg PO DAILY [facility] Last Admin: 02/07/21 08:16 Dose: 2 mg Documented by: Discontinued Medications Aspirin (Aspirin 81 Mg Tab.Chew) 324 mg PO ONETIME ONE Stop: 02/05/21 07:19 Last Admin: 02/05/21 07:29 Dose: 324 mg Documented by: Gadobenate Dimeglumine (Gadobenate Dimeglumine 529 Mg/Ml 20 Ml Sdv) 20 ml IVPUSH ONETIME STA Stop: 02/05/21 13:21 Last Admin: 02/05/21 13:21 Dose: 17 ml Documented by: Sodium Chloride (Normal Saline) 1,000 mls @ 100 mls/hr IV ASDIRECTED [facility] Last Admin: 02/05/21 07:30 Dose: 100 mls/hr Documented by: Influenza Virus Vaccine (Flu Vacc [id number](65yr Up)/Pf 240 Mcg/0.7 Ml Syringe) 240 mcg IM .ONCE ONE Stop: 02/05/21 13:46 Iopamidol (Iopamidol 755 Mg/Ml 500 Ml Multipack Bottle) 100 ml IVPUSH ONETIME STA Stop: 02/05/21 07:19 Last Admin: 02/05/21 07:19 Dose: 100 ml Documented by: Potassium Chloride (Potassium Chloride 20 Meq Tab.Er) 20 meq PO ONETIME ONE Stop: 02/06/21 07:57 Last Admin: 02/06/21 08:05 Dose: 20 meq Documented by: Sodium Chloride (Sodium Chloride 0.9% 10 Ml Syringe) 10 ml FLUSH ASDIRECTED PRN PRN Reason: Keep Vein Open Last Admin: 02/05/21 07:30 Dose: 10 ml Documented by: Sodium Chloride (Sodium Chloride 0.9% 2.5 Ml Syringe) 2.5 ml FLUSH ASDIRECTED PRN PRN Reason: Keep Vein Open Last Admin: 02/05/21 07:30 Dose: 2.5 ml Documented by: - Exam General: Alert, Oriented Neck: Supple Lungs: Clear to Auscultation, Normal Respiratory Effort Cardiovascular: Regular Rate, Regular Rhythm GI/Abdominal Exam: Soft, No Distention Extremities: Non-Tender, No Pedal Edema Neurological: No New Focal Deficit, Cranial Nerves Intact, Other (left arm and leg strength decreased compaired to right) - Patient Data Lab Results Last 24 hrs: Laboratory Results - last 24 hr 02/07/21 02/07/21 Range/Units 08:50 08:50 WBC 6.44 (4.0-11.0) K/uL RBC 4.65 (4.30-5.90) M/uL Hgb 13.9 (12.0-16.0) g/dL Hct 41.7 (36.0-46.0) % MCV 89.7 (80.0-98.0) fL MCH 29.9 (27.0-32.0) pg MCHC 33.3 (31.0-37.0) g/dL RDW Std Deviation 43.2 (28.0-62.0) fl RDW Coeff of [place] 13 (11.0-15.0) % Plt Count 225 (150-400) K/uL MPV 10.60 (7.40-12.00) fL Neut % (Auto) 64.1 (48.0-80.0) % Lymph % (Auto) 22.5 (16.0-40.0) % [place] % (Auto) 9.2 (0.0-15.0) % Eos % (Auto) 3.7 (0.0-7.0) % Baso % (Auto) 0.5 (0.0-1.5) % Neut # (Auto) 4.1 (1.4-5.7) K/uL Lymph # (Auto) 1.5 (0.6-2.4) K/uL [place] # (Auto) 0.6 (0.0-0.8) K/uL Eos # (Auto) 0.2 (0.0-0.7) K/uL Baso # (Auto) 0.0 (0.0-0.1) K/uL Nucleated RBC % 0.0 /100WBC Nucleated RBCs # 0 K/uL Sodium 143 (136-145) mmol/L Potassium 3.9 (3.5-5.1) mmol/L Chloride 108 H (98-107) mmol/L Carbon Dioxide 25.8 (21.0-32.0) mmol/L BUN 11 (7.0-18.0) mg/dL Creatinine 0.8 (0.6-1.0) mg/dL Est Cr Clr Drug Dosing 67.27 mL/min Estimated GFR (MDRD) > 60.0 ml/min Glucose 107 H (74-106) mg/dL Calcium 9.7 (8.5-10.1) mg/dL Result Diagrams: 02/07/21 08:50 02/07/21 08:50 Sepsis Event Note - Evaluation Sepsis Screening Result: No Definite Risk - Focused Exam Vital Signs: Vital Signs Temp Pulse Resp BP Pulse Ox 02/07/21 08:08 36.1 C 65 16 171/78 H 94 L 02/07/21 04:00 36.1 C 77 14 143/66 H 96 02/07/21 01:01 36.2 C 79 16 138/77 94 L - Problem List & Annotations (1) Acute CVA (cerebrovascular accident) SNOMED Code(s): 313935636, 166873805 Code(s): I63.9 - CEREBRAL INFARCTION, UNSPECIFIED Status: Acute Current Visit: Yes - Problem List Review Problem List Initiated/Reviewed/Updated: Yes - Plan Plan:: This 65-year-old female admitted with suspected acute CVA with left-sided hemiparesis 1. Acute CVA -Dr. Oneil consulted appreciate her assistance -Continue telemetry no arrhythmias noted overnight -Zio patch on discharge -Continue aspirin daily -Continue atorvastatin 80 mg daily -PT OT to evaluate and treat VTE prophylaxis: Lovenox CODE STATUS: DNR/DNI per patient Dispo 2 to 3 days, likely to SNF
[2021-02-07] MEDS: atorvaSTATin 40 MG Tab PO SCH (22:54)
[2021-02-08] MEDS: Enoxaparin 40 MG/0.4 ML Syringe SUBCUT SCH (08:02)
[2021-02-08] MEDS: Aspirin 81 MG Tab.Chew PO SCH (08:02)
[2021-02-08] MEDS: Tolterodine 2 MG Cap.ER PO SCH (08:02)
[2021-02-08] MEDS: Escitalopram 10 MG Tab PO SCH (08:02)
--- NOTE | 2021-02-08 10:52 | PCM.PN ---
- General Info Date of Service: 02/08/21 - Review of Systems Systems Review Comment:: reports improvement in leg strength more so than left arm strength, requiring an assistance with walking - Patient Data Vitals - Most Recent: Last Vital Signs Temp 36.1 C 02/08/21 07:58 Pulse 84 02/08/21 07:58 Resp 16 02/08/21 07:58 BP 149/100 H 02/08/21 07:58 Pulse Ox 96 02/08/21 07:58 Weight - Most Recent: 85.956 kg I&O - Last 24 Hours: Intake & Output 02/07/21 02/08/21 02/08/21 22:59 06:59 14:59 Intake Total 580 1000 Output Total 500 750 Balance 80 250 Med Orders - Current: Current Medications Acetaminophen (Acetaminophen 325 Mg Tab) 650 mg PO Q4H PRN PRN Reason: Pain (Mild 1-3)/fever Aspirin (Aspirin 81 Mg Tab.Chew) 81 mg PO DAILY [facility] Last Admin: 02/08/21 08:02 Dose: 81 mg Documented by: Atorvastatin Calcium (Atorvastatin 40 Mg Tab) 80 mg PO BEDTIME [facility] Last Admin: 02/07/21 22:54 Dose: 80 mg Documented by: Docusate Sodium (Docusate Sodium 100 Mg Cap) 100 mg PO BID PRN PRN Reason: Constipation Enoxaparin Sodium (Enoxaparin 40 Mg/0.4 Ml Syringe) 40 mg SUBCUT Q24H [facility] Last Admin: 02/08/21 08:02 Dose: 40 mg Documented by: Escitalopram Oxalate (Escitalopram 10 Mg Tab) 20 mg PO DAILY [facility] Last Admin: 02/08/21 08:02 Dose: 20 mg Documented by: Ondansetron HCl (Ondansetron 4 Mg/2 Ml Sdv) 4 mg IVPUSH Q4H PRN PRN Reason: Nausea Sodium Chloride (Sodium Chloride 0.9% 2.5 Ml Syringe) 2.5 ml FLUSH ASDIRECTED PRN PRN Reason: Keep Vein Open Tolterodine Tartrate (Tolterodine 2 Mg Cap.Er) 2 mg PO DAILY [facility] Last Admin: 02/08/21 08:02 Dose: 2 mg Documented by: Discontinued Medications Aspirin (Aspirin 81 Mg Tab.Chew) 324 mg PO ONETIME ONE Stop: 02/05/21 07:19 Last Admin: 02/05/21 07:29 Dose: 324 mg Documented by: Gadobenate Dimeglumine (Gadobenate Dimeglumine 529 Mg/Ml 20 Ml Sdv) 20 ml IVPUSH ONETIME STA Stop: 02/05/21 13:21 Last Admin: 02/05/21 13:21 Dose: 17 ml Documented by: Sodium Chloride (Normal Saline) 1,000 mls @ 100 mls/hr IV ASDIRECTED [facility] Last Admin: 02/05/21 07:30 Dose: 100 mls/hr Documented by: Influenza Virus Vaccine (Flu Vacc [id number](65yr Up)/Pf 240 Mcg/0.7 Ml Syringe) 240 mcg IM .ONCE ONE Stop: 02/05/21 13:46 Iopamidol (Iopamidol 755 Mg/Ml 500 Ml Multipack Bottle) 100 ml IVPUSH ONETIME STA Stop: 02/05/21 07:19 Last Admin: 02/05/21 07:19 Dose: 100 ml Documented by: Potassium Chloride (Potassium Chloride 20 Meq Tab.Er) 20 meq PO ONETIME ONE Stop: 02/06/21 07:57 Last Admin: 02/06/21 08:05 Dose: 20 meq Documented by: Sodium Chloride (Sodium Chloride 0.9% 10 Ml Syringe) 10 ml FLUSH ASDIRECTED PRN PRN Reason: Keep Vein Open Last Admin: 02/05/21 07:30 Dose: 10 ml Documented by: Sodium Chloride (Sodium Chloride 0.9% 2.5 Ml Syringe) 2.5 ml FLUSH ASDIRECTED PRN PRN Reason: Keep Vein Open Last Admin: 02/05/21 07:30 Dose: 2.5 ml Documented by: - Exam General: Alert, Oriented Neck: Supple Lungs: Clear to Auscultation, Normal Respiratory Effort Cardiovascular: Regular Rate, Regular Rhythm GI/Abdominal Exam: Soft Extremities: Non-Tender, No Pedal Edema Skin: Warm, Dry, Intact Neurological: No New Focal Deficit, Other (decreased left arm and leg strength) - Patient Data Result Diagrams: 02/07/21 08:50 02/07/21 08:50 Sepsis Event Note - Evaluation Sepsis Screening Result: No Definite Risk - Focused Exam Vital Signs: Vital Signs Temp Pulse Resp BP Pulse Ox 02/08/21 07:58 36.1 C 84 16 149/100 H 96 02/08/21 04:00 36.1 C 66 16 138/80 97 02/08/21 00:00 36.4 C 75 16 131/72 97 - Problem List & Annotations (1) Acute CVA (cerebrovascular accident) SNOMED Code(s): 554920547, 210626230 Code(s): I63.9 - CEREBRAL INFARCTION, UNSPECIFIED Status: Acute Current Visit: Yes - Problem List Review Problem List Initiated/Reviewed/Updated: Yes - Plan Plan:: This 65-year-old female admitted with suspected acute CVA with left-sided hemiparesis 1. Acute CVA -Dr. Oneil consulted appreciate her assistance -Continue telemetry no arrhythmias note -Zio patch on discharge -Continue aspirin daily -Continue atorvastatin 80 mg daily -PT and OT to evaluate and treat VTE prophylaxis: Lovenox CODE STATUS: DNR/DNI per patient Dispo 2 to 3 days, likely to SNF
[2021-02-08] MEDS: atorvaSTATin 40 MG Tab PO SCH (20:32)
[2021-02-09] MEDS: Enoxaparin 40 MG/0.4 ML Syringe SUBCUT SCH (07:58)
[2021-02-09] MEDS: Tolterodine 2 MG Cap.ER PO SCH (08:01)
[2021-02-09] MEDS: Aspirin 81 MG Tab.Chew PO SCH (08:01)
[2021-02-09] MEDS: Escitalopram 10 MG Tab PO SCH (08:01)
--- NOTE | 2021-02-09 12:44 | PCM.PN ---
- General Info Date of Service: 02/09/21 - Review of Systems Systems Review Comment:: arm and hand strength improving - Patient Data Vitals - Most Recent: Last Vital Signs Temp 36.3 C 02/09/21 11:08 Pulse 70 02/09/21 11:08 Resp 18 02/09/21 11:08 BP 130/73 02/09/21 11:08 Pulse Ox 96 02/09/21 11:08 Weight - Most Recent: 85.956 kg I&O - Last 24 Hours: Intake & Output 02/08/21 02/09/21 02/09/21 22:59 06:59 14:59 Intake Total 880 700 Output Total 600 600 Balance 280 100 Med Orders - Current: Current Medications Acetaminophen (Acetaminophen 325 Mg Tab) 650 mg PO Q4H PRN PRN Reason: Pain (Mild 1-3)/fever Aspirin (Aspirin 81 Mg Tab.Chew) 81 mg PO DAILY [facility] Last Admin: 02/09/21 08:01 Dose: 81 mg Documented by: Atorvastatin Calcium (Atorvastatin 40 Mg Tab) 80 mg PO BEDTIME [facility]PL[facility] Last Admin: 02/08/21 20:32 Dose: 80 mg Documented by: Docusate Sodium (Docusate Sodium 100 Mg Cap) 100 mg PO BID PRN PRN Reason: Constipation Enoxaparin Sodium (Enoxaparin 40 Mg/0.4 Ml Syringe) 40 mg SUBCUT Q24H REPLACED [facility] Last Admin: 02/09/21 07:58 Dose: 40 mg Documented by: Escitalopram Oxalate (Escitalopram 10 Mg Tab) 20 mg PO DAILY [facility] Last Admin: 02/09/21 08:01 Dose: 20 mg Documented by: Ondansetron HCl (Ondansetron 4 Mg/2 Ml Sdv) 4 mg IVPUSH Q4H PRN PRN Reason: Nausea Sodium Chloride (Sodium Chloride 0.9% 2.5 Ml Syringe) 2.5 ml FLUSH ASDIRECTED PRN PRN Reason: Keep Vein Open Tolterodine Tartrate (Tolterodine 2 Mg Cap.Er) 2 mg PO DAILY [facility] Last Admin: 02/09/21 08:01 Dose: 2 mg Documented by: Discontinued Medications Aspirin (Aspirin 81 Mg Tab.Chew) 324 mg PO ONETIME ONE Stop: 02/05/21 07:19 Last Admin: 02/05/21 07:29 Dose: 324 mg Documented by: Gadobenate Dimeglumine (Gadobenate Dimeglumine 529 Mg/Ml 20 Ml Sdv) 20 ml IVPUSH ONETIME STA Stop: 02/05/21 13:21 Last Admin: 02/05/21 13:21 Dose: 17 ml Documented by: Sodium Chloride (Normal Saline) 1,000 mls @ 100 mls/hr IV ASDIRECTED [facility] Last Admin: 02/05/21 07:30 Dose: 100 mls/hr Documented by: Influenza Virus Vaccine (Flu Vacc [id number](65yr Up)/Pf 240 Mcg/0.7 Ml Syringe) 240 mcg IM .ONCE ONE Stop: 02/05/21 13:46 Iopamidol (Iopamidol 755 Mg/Ml 500 Ml Multipack Bottle) 100 ml IVPUSH ONETIME STA Stop: 02/05/21 07:19 Last Admin: 02/05/21 07:19 Dose: 100 ml Documented by: Potassium Chloride (Potassium Chloride 20 Meq Tab.Er) 20 meq PO ONETIME ONE Stop: 02/06/21 07:57 Last Admin: 02/06/21 08:05 Dose: 20 meq Documented by: Sodium Chloride (Sodium Chloride 0.9% 10 Ml Syringe) 10 ml FLUSH ASDIRECTED PRN PRN Reason: Keep Vein Open Last Admin: 02/05/21 07:30 Dose: 10 ml Documented by: Sodium Chloride (Sodium Chloride 0.9% 2.5 Ml Syringe) 2.5 ml FLUSH ASDIRECTED PRN PRN Reason: Keep Vein Open Last Admin: 02/05/21 07:30 Dose: 2.5 ml Documented by: - Exam General: Alert, Oriented Neck: Supple Lungs: Clear to Auscultation, Normal Respiratory Effort Cardiovascular: Regular Rate, Regular Rhythm GI/Abdominal Exam: Normal Bowel Sounds, Soft, Non-Tender Extremities: Non-Tender, No Pedal Edema Skin: Warm, Dry, Intact Neurological: No New Focal Deficit - Patient Data Result Diagrams: 02/07/21 08:50 02/07/21 08:50 Sepsis Event Note - Evaluation Sepsis Screening Result: No Definite Risk - Focused Exam Vital Signs: Vital Signs Temp Pulse Resp BP Pulse Ox 02/09/21 11:08 36.3 C 70 18 130/73 96 02/09/21 08:00 35.9 C L 76 16 152/77 H 98 02/09/21 04:00 36.3 C 69 16 152/67 H 95 - Problem List & Annotations (1) Acute CVA (cerebrovascular accident) SNOMED Code(s): 692299894, [id number] Code(s): I63.9 - CEREBRAL INFARCTION, UNSPECIFIED Status: Acute Current Visit: Yes - Problem List Review Problem List Initiated/Reviewed/Updated: Yes - Plan Plan:: This 65-year-old female admitted with suspected acute CVA with left-sided hemiparesis 1. Acute CVA -Dr. Oneil consulted appreciate her assistance -Continue telemetry no arrhythmias note -Zio patch on discharge -Continue aspirin daily -Continue atorvastatin 80 mg daily -PT and OT to evaluate and treat VTE prophylaxis: Lovenox CODE STATUS: DNR/DNI per patient Dispo 2 to 3 days, likely to SNF
[2021-02-09] MEDS: atorvaSTATin 40 MG Tab PO SCH (21:06)
[2021-02-10] MEDS: Tolterodine 2 MG Cap.ER PO SCH (07:59)
[2021-02-10] MEDS: Enoxaparin 40 MG/0.4 ML Syringe SUBCUT SCH (07:59)
[2021-02-10] MEDS: Aspirin 81 MG Tab.Chew PO SCH (07:59)
[2021-02-10] MEDS: Escitalopram 10 MG Tab PO SCH (07:59)
--- NOTE | 2021-02-10 08:34 | PCM.PN ---
- General Info Date of Service: 02/10/21 Admission Dx/Problem (Free Text): Admission Diagnosis/Problem Admission Diagnosis/Problem Stroke of unknown etiology Subjective Update: Continues to do well today, strength slowly improving. No chest pain or SOB. No headache. Eager to work with PT/OT today Functional Status: Reports: Pain Controlled, Tolerating Diet, Ambulating (with walker and assist of 1) - Review of Systems General: Reports: No Symptoms HEENT: Reports: No Symptoms. Denies: Headaches, Sore Throat, Visual Changes Pulmonary: Reports: No Symptoms. Denies: Shortness of Breath Cardiovascular: Reports: No Symptoms. Denies: Chest Pain Gastrointestinal: Reports: No Symptoms. Denies: Abdominal Pain, Nausea, Vomiting Genitourinary: Reports: No Symptoms. Denies: Dysuria, Frequency Musculoskeletal: Reports: No Symptoms Skin: Reports: No Symptoms Neurological: Reports: Difficulty Walking, Weakness (L upper and lower exdtremities, improving) - Patient Data Vitals - Most Recent: Last Vital Signs Temp 96.7 F L 02/10/21 07:53 Pulse 78 02/10/21 07:53 Resp 16 02/10/21 07:53 BP 132/70 02/10/21 07:53 Pulse Ox 94 L 02/10/21 07:53 Weight - Most Recent: 85.956 kg I&O - Last 24 Hours: Intake & Output 02/09/21 02/10/21 02/10/21 22:59 06:59 14:59 Intake Total 900 500 Output Total 550 700 Balance 350 -200 Med Orders - Current: Current Medications Acetaminophen (Acetaminophen 325 Mg Tab) 650 mg PO Q4H PRN PRN Reason: Pain (Mild 1-3)/fever Aspirin (Aspirin 81 Mg Tab.Chew) 81 mg PO DAILY [facility] Last Admin: 02/10/21 07:59 Dose: 81 mg Documented by: Atorvastatin Calcium (Atorvastatin 40 Mg Tab) 80 mg PO BEDTIME [facility] Last Admin: 02/09/21 21:06 Dose: 80 mg Documented by: Docusate Sodium (Docusate Sodium 100 Mg Cap) 100 mg PO BID PRN PRN Reason: Constipation Enoxaparin Sodium (Enoxaparin 40 Mg/0.4 Ml Syringe) 40 mg SUBCUT Q24H [facility] Last Admin: 02/10/21 07:59 Dose: 40 mg Documented by: Escitalopram Oxalate (Escitalopram 10 Mg Tab) 20 mg PO DAILY [facility] Last Admin: 02/10/21 07:59 Dose: 20 mg Documented by: Ondansetron HCl (Ondansetron 4 Mg/2 Ml Sdv) 4 mg IVPUSH Q4H PRN PRN Reason: Nausea Sodium Chloride (Sodium Chloride 0.9% 2.5 Ml Syringe) 2.5 ml FLUSH ASDIRECTED PRN PRN Reason: Keep Vein Open Tolterodine Tartrate (Tolterodine 2 Mg Cap.Er) 2 mg PO DAILY [facility] Last Admin: 02/10/21 07:59 Dose: 2 mg Documented by: Discontinued Medications Aspirin (Aspirin 81 Mg Tab.Chew) 324 mg PO ONETIME ONE Stop: 02/05/21 07:19 Last Admin: 02/05/21 07:29 Dose: 324 mg Documented by: Gadobenate Dimeglumine (Gadobenate Dimeglumine 529 Mg/Ml 20 Ml Sdv) 20 ml IVPUSH ONETIME STA Stop: 02/05/21 13:21 Last Admin: 02/05/21 13:21 Dose: 17 ml Documented by: Sodium Chloride (Normal Saline) 1,000 mls @ 100 mls/hr IV ASDIRECTED [facility] Last Admin: 02/05/21 07:30 Dose: 100 mls/hr Documented by: Influenza Virus Vaccine (Flu Vacc [id number](65yr Up)/Pf 240 Mcg/0.7 Ml Syringe) 240 mcg IM .ONCE ONE Stop: 02/05/21 13:46 Iopamidol (Iopamidol 755 Mg/Ml 500 Ml Multipack Bottle) 100 ml IVPUSH ONETIME STA Stop: 02/05/21 07:19 Last Admin: 02/05/21 07:19 Dose: 100 ml Documented by: Potassium Chloride (Potassium Chloride 20 Meq Tab.Er) 20 meq PO ONETIME ONE Stop: 02/06/21 07:57 Last Admin: 02/06/21 08:05 Dose: 20 meq Documented by: Sodium Chloride (Sodium Chloride 0.9% 10 Ml Syringe) 10 ml FLUSH ASDIRECTED PRN PRN Reason: Keep Vein Open Last Admin: 02/05/21 07:30 Dose: 10 ml Documented by: Sodium Chloride (Sodium Chloride 0.9% 2.5 Ml Syringe) 2.5 ml FLUSH ASDIRECTED PRN PRN Reason: Keep Vein Open Last Admin: 02/05/21 07:30 Dose: 2.5 ml Documented by: - Exam Quality Assessment: DVT Prophylaxis. No: Supplemental Oxygen General: Alert, Oriented, Cooperative, No Acute Distress HEENT: Pupils Equal, Pupils Reactive Lungs: Clear to Auscultation, Normal Respiratory Effort Cardiovascular: Regular Rate, Regular Rhythm GI/Abdominal Exam: Normal Bowel Sounds, Soft, Non-Tender Extremities: Normal Inspection, Normal Range of Motion, Non-Tender, No Pedal Edema Skin: Warm, Dry Neurological: No New Focal Deficit, Normal Speech. No: Normal Gait, Strength Equal Bilateral (L weaker than R) Psy/Mental Status: Alert, Normal Affect, Normal Mood - Patient Data Result Diagrams: 02/07/21 08:50 02/07/21 08:50 Sepsis Event Note - Evaluation Sepsis Screening Result: No Definite Risk - Focused Exam Vital Signs: Vital Signs Temp Temp Pulse Resp BP Pulse Ox 02/10/21 07:53 96.7 F L 78 16 132/70 94 L 02/10/21 04:00 98.0 F 74 16 135/75 95 02/10/21 00:00 97.6 F 80 16 136/67 94 L - Problem List & Annotations (1) Acute CVA (cerebrovascular accident) SNOMED Code(s): 048841702, 640367384 Code(s): I63.9 - CEREBRAL INFARCTION, UNSPECIFIED Status: Acute Current Visit: Yes (2) Left hemiparesis SNOMED Code(s): 592288804 Code(s): G81.94 - HEMIPLEGIA, UNSPECIFIED AFFECTING LEFT NONDOMINANT SIDE Status: Acute Current Visit: Yes (3) Depression with anxiety SNOMED Code(s): 329354488 Code(s): F41.8 - OTHER SPECIFIED ANXIETY DISORDERS Status: Chronic Current Visit: Yes (4) Bladder incontinence SNOMED Code(s): 356735136 Code(s): R32 - UNSPECIFIED URINARY INCONTINENCE Status: Chronic Current Visit: Yes (5) Hyperlipidemia SNOMED Code(s): 88195324 Code(s): E78.5 - HYPERLIPIDEMIA, UNSPECIFIED Status: Acute Current Visit: Yes - Problem List Review Problem List Initiated/Reviewed/Updated: Yes - Plan Plan:: This 65-year-old female admitted with suspected acute CVA with left-sided hemiparesis 1. Acute CVA -Dr. Oneil consulted appreciate her assistance -Continue telemetry no arrhythmias note -Zio patch on discharge -Continue aspirin daily -Continue atorvastatin 80 mg daily -PT and OT to evaluate and treat VTE prophylaxis: Lovenox CODE STATUS: DNR/DNI per patient Dispo 2 to 3 days, likely to SNF
[2021-02-10] MEDS: atorvaSTATin 40 MG Tab PO SCH (20:46)
[2021-02-11] MEDS: Enoxaparin 40 MG/0.4 ML Syringe SUBCUT SCH (07:54)
[2021-02-11] MEDS: Escitalopram 10 MG Tab PO SCH (08:00)
[2021-02-11] MEDS: Aspirin 81 MG Tab.Chew PO SCH (08:00)
[2021-02-11] MEDS: Tolterodine 2 MG Cap.ER PO SCH (08:00)
--- NOTE | 2021-02-11 11:12 | ECHO ---
EXAM DATE: 02/05/21 PATIENT'S AGE: 65 The ECHO report has been scanned into [employer] and can be seen in this patient's EMR (Electronic Medical Record) under the REPORTS section. The report has also been scanned into PACS. ESTELITA
--- NOTE | 2021-02-11 15:06 | PCM.PN ---
- General Info Date of Service: 02/11/21 - Review of Systems Systems Review Comment:: reports some improving in hand and leg strength - Patient Data Vitals - Most Recent: Last Vital Signs Temp 36.9 C 02/11/21 12:00 Pulse 74 02/11/21 12:00 Resp 16 02/11/21 12:00 BP 145/84 H 02/11/21 12:00 Pulse Ox 95 02/11/21 12:00 Weight - Most Recent: 85.956 kg I&O - Last 24 Hours: Intake & Output 02/11/21 02/11/21 02/11/21 06:59 14:59 22:59 Intake Total 300 Output Total 450 Balance -150 Med Orders - Current: Current Medications Acetaminophen (Acetaminophen 325 Mg Tab) 650 mg PO Q4H PRN PRN Reason: Pain (Mild 1-3)/fever Aspirin (Aspirin 81 Mg Tab.Chew) 81 mg PO DAILY [facility] Last Admin: 02/11/21 08:00 Dose: 81 mg Documented by: Atorvastatin Calcium (Atorvastatin 40 Mg Tab) 80 mg PO BEDTIME [facility] Last Admin: 02/10/21 20:46 Dose: 80 mg Documented by: Docusate Sodium (Docusate Sodium 100 Mg Cap) 100 mg PO BID PRN PRN Reason: Constipation Enoxaparin Sodium (Enoxaparin 40 Mg/0.4 Ml Syringe) 40 mg SUBCUT Q24H [facility] Last Admin: 02/11/21 07:54 Dose: 40 mg Documented by: Escitalopram Oxalate (Escitalopram 10 Mg Tab) 20 mg PO DAILY [facility] Last Admin: 02/11/21 08:00 Dose: 20 mg Documented by: Ondansetron HCl (Ondansetron 4 Mg/2 Ml Sdv) 4 mg IVPUSH Q4H PRN PRN Reason: Nausea Sodium Chloride (Sodium Chloride 0.9% 2.5 Ml Syringe) 2.5 ml FLUSH ASDIRECTED PRN PRN Reason: Keep Vein Open Tolterodine Tartrate (Tolterodine 2 Mg Cap.Er) 2 mg PO DAILY [facility] Last Admin: 02/11/21 08:00 Dose: 2 mg Documented by: Discontinued Medications Aspirin (Aspirin 81 Mg Tab.Chew) 324 mg PO ONETIME ONE Stop: 02/05/21 07:19 Last Admin: 02/05/21 07:29 Dose: 324 mg Documented by: Gadobenate Dimeglumine (Gadobenate Dimeglumine 529 Mg/Ml 20 Ml Sdv) 20 ml IVPUSH ONETIME STA Stop: 02/05/21 13:21 Last Admin: 02/05/21 13:21 Dose: 17 ml Documented by: Sodium Chloride (Normal Saline) 1,000 mls @ 100 mls/hr IV ASDIRECTED [facility] Last Admin: 02/05/21 07:30 Dose: 100 mls/hr Documented by: Influenza Virus Vaccine (Flu Vacc [id number](65yr Up)/Pf 240 Mcg/0.7 Ml Syringe) 240 mcg IM .ONCE ONE Stop: 02/05/21 13:46 Iopamidol (Iopamidol 755 Mg/Ml 500 Ml Multipack Bottle) 100 ml IVPUSH ONETIME STA Stop: 02/05/21 07:19 Last Admin: 02/05/21 07:19 Dose: 100 ml Documented by: Potassium Chloride (Potassium Chloride 20 Meq Tab.Er) 20 meq PO ONETIME ONE Stop: 02/06/21 07:57 Last Admin: 02/06/21 08:05 Dose: 20 meq Documented by: Sodium Chloride (Sodium Chloride 0.9% 10 Ml Syringe) 10 ml FLUSH ASDIRECTED PRN PRN Reason: Keep Vein Open Last Admin: 02/05/21 07:30 Dose: 10 ml Documented by: Sodium Chloride (Sodium Chloride 0.9% 2.5 Ml Syringe) 2.5 ml FLUSH ASDIRECTED PRN PRN Reason: Keep Vein Open Last Admin: 02/05/21 07:30 Dose: 2.5 ml Documented by: - Exam General: Alert, Oriented Neck: Supple Lungs: Clear to Auscultation, Normal Respiratory Effort Cardiovascular: Regular Rate, Regular Rhythm GI/Abdominal Exam: Normal Bowel Sounds, Soft, Non-Tender Extremities: Non-Tender, No Pedal Edema Skin: Warm, Dry, Intact Neurological: No: Strength Equal Bilateral (left hand hand and leg weakness) - Patient Data Result Diagrams: 02/07/21 08:50 02/07/21 08:50 Sepsis Event Note - Evaluation Sepsis Screening Result: No Definite Risk - Focused Exam Vital Signs: Vital Signs Temp Pulse Resp BP Pulse Ox 02/11/21 12:00 36.9 C 74 16 145/84 H 95 02/11/21 08:00 36.8 C 45 L 16 135/72 98 02/11/21 04:00 36.1 C 76 16 128/67 94 L - Problem List & Annotations (1) Acute CVA (cerebrovascular accident) SNOMED Code(s): 481764606, 042519666 Code(s): I63.9 - CEREBRAL INFARCTION, UNSPECIFIED Status: Acute Current Visit: Yes - Problem List Review Problem List Initiated/Reviewed/Updated: Yes - Plan Plan:: This 65-year-old female admitted with suspected acute CVA with left-sided hemiparesis 1. Acute CVA -Dr. Oneil consulted appreciate her assistance -Continue telemetry no arrhythmias note -Zio patch on discharge -Continue aspirin daily -Continue atorvastatin 80 mg daily -PT and OT to evaluate and treat VTE prophylaxis: Lovenox CODE STATUS: DNR/DNI per patient Dispo 2 to 3 days, likely to SNF
[2021-02-11] MEDS: atorvaSTATin 40 MG Tab PO SCH (20:01)
--- NOTE | 2021-02-12 07:58 | PCM.PN ---
- General Info Date of Service: 02/12/21 Admission Dx/Problem (Free Text): Admission Diagnosis/Problem Admission Diagnosis/Problem Stroke of unknown etiology Subjective Update: Continues to do well physical therapy and Occupational Therapy. Steadily improving daily. Denies any chest pain or shortness of breath. Continues to need walker and 1 assist with ambulation as she does get tired and starts leaning to the left. Functional Status: Reports: Pain Controlled, Tolerating Diet, Ambulating - Review of Systems General: Reports: No Symptoms. Denies: Fever, Weakness, Fatigue HEENT: Reports: No Symptoms. Denies: Headaches, Sinus Congestion Pulmonary: Reports: No Symptoms. Denies: Shortness of Breath Cardiovascular: Reports: No Symptoms. Denies: Chest Pain Gastrointestinal: Reports: No Symptoms Genitourinary: Reports: No Symptoms Musculoskeletal: Reports: No Symptoms Skin: Reports: No Symptoms Neurological: Reports: Difficulty Walking, Weakness (Steadily improving). Denies: Headache - Patient Data Vitals - Most Recent: Last Vital Signs Temp 96.8 F L 02/12/21 03:46 Pulse 77 02/12/21 03:46 Resp 17 02/12/21 03:46 BP 121/59 L 02/12/21 03:46 Pulse Ox 95 02/12/21 03:46 Weight - Most Recent: 85.956 kg I&O - Last 24 Hours: Intake & Output 02/11/21 02/12/21 02/12/21 22:59 06:59 14:59 Intake Total 1000 300 Output Total 800 250 Balance 200 50 Med Orders - Current: Current Medications Acetaminophen (Acetaminophen 325 Mg Tab) 650 mg PO Q4H PRN PRN Reason: Pain (Mild 1-3)/fever Last Admin: 02/11/21 19:50 Dose: 650 mg Documented by: Aspirin (Aspirin 81 Mg Tab.Chew) 81 mg PO DAILY [facility] Last Admin: 02/11/21 08:00 Dose: 81 mg Documented by: Atorvastatin Calcium (Atorvastatin 40 Mg Tab) 80 mg PO BEDTIME [facility] Last Admin: 02/11/21 20:01 Dose: 80 mg Documented by: Docusate Sodium (Docusate Sodium 100 Mg Cap) 100 mg PO BID PRN PRN Reason: Constipation Enoxaparin Sodium (Enoxaparin 40 Mg/0.4 Ml Syringe) 40 mg SUBCUT Q24H [facility] Last Admin: 02/11/21 07:54 Dose: 40 mg Documented by: Escitalopram Oxalate (Escitalopram 10 Mg Tab) 20 mg PO DAILY [facility] Last Admin: 02/11/21 08:00 Dose: 20 mg Documented by: Ondansetron HCl (Ondansetron 4 Mg/2 Ml Sdv) 4 mg IVPUSH Q4H PRN PRN Reason: Nausea Sodium Chloride (Sodium Chloride 0.9% 2.5 Ml Syringe) 2.5 ml FLUSH ASDIRECTED PRN PRN Reason: Keep Vein Open Tolterodine Tartrate (Tolterodine 2 Mg Cap.Er) 2 mg PO DAILY [facility] Last Admin: 02/11/21 08:00 Dose: 2 mg Documented by: Discontinued Medications Aspirin (Aspirin 81 Mg Tab.Chew) 324 mg PO ONETIME ONE Stop: 02/05/21 07:19 Last Admin: 02/05/21 07:29 Dose: 324 mg Documented by: Gadobenate Dimeglumine (Gadobenate Dimeglumine 529 Mg/Ml 20 Ml Sdv) 20 ml IVPUSH ONETIME STA Stop: 02/05/21 13:21 Last Admin: 02/05/21 13:21 Dose: 17 ml Documented by: Sodium Chloride (Normal Saline) 1,000 mls @ 100 mls/hr IV ASDIRECTED [facility] Last Admin: 02/05/21 07:30 Dose: 100 mls/hr Documented by: Influenza Virus Vaccine (Flu Vacc [id number](65yr Up)/Pf 240 Mcg/0.7 Ml Syringe) 240 mcg IM .ONCE ONE Stop: 02/05/21 13:46 Iopamidol (Iopamidol 755 Mg/Ml 500 Ml Multipack Bottle) 100 ml IVPUSH ONETIME STA Stop: 02/05/21 07:19 Last Admin: 02/05/21 07:19 Dose: 100 ml Documented by: Potassium Chloride (Potassium Chloride 20 Meq Tab.Er) 20 meq PO ONETIME ONE Stop: 02/06/21 07:57 Last Admin: 02/06/21 08:05 Dose: 20 meq Documented by: Sodium Chloride (Sodium Chloride 0.9% 10 Ml Syringe) 10 ml FLUSH ASDIRECTED PRN PRN Reason: Keep Vein Open Last Admin: 02/05/21 07:30 Dose: 10 ml Documented by: Sodium Chloride (Sodium Chloride 0.9% 2.5 Ml Syringe) 2.5 ml FLUSH ASDIRECTED PRN PRN Reason: Keep Vein Open Last Admin: 02/05/21 07:30 Dose: 2.5 ml Documented by: - Exam Quality Assessment: DVT Prophylaxis. No: Supplemental Oxygen General: Alert, Oriented, Cooperative, No Acute Distress HEENT: Pupils Equal, Pupils Reactive Lungs: Clear to Auscultation, Normal Respiratory Effort Cardiovascular: Regular Rate, Regular Rhythm GI/Abdominal Exam: Normal Bowel Sounds, Soft, Non-Tender Back Exam: Normal Inspection, Full Range of Motion Extremities: Normal Inspection, Normal Range of Motion, Non-Tender, No Pedal Edema Neurological: Sensation Intact. No: Normal Gait (Foot drop noted to left), Strength Equal Bilateral (Left continues to be weaker to upper and lower extremities steadily improving) Psy/Mental Status: Alert, Normal Affect, Normal Mood - Patient Data Result Diagrams: 02/07/21 08:50 02/07/21 08:50 Sepsis Event Note - Evaluation Sepsis Screening Result: No Definite Risk - Focused Exam Vital Signs: Vital Signs Temp Pulse Resp BP Pulse Ox 02/12/21 03:46 96.8 F L 77 17 121/59 L 95 02/11/21 23:15 97.5 F 72 18 117/61 93 L - Problem List & Annotations (1) Acute CVA (cerebrovascular accident) SNOMED Code(s): 268078814, 937630339 Code(s): I63.9 - CEREBRAL INFARCTION, UNSPECIFIED Status: Acute Current Visit: Yes (2) Left hemiparesis SNOMED Code(s): 515818856 Code(s): G81.94 - HEMIPLEGIA, UNSPECIFIED AFFECTING LEFT NONDOMINANT SIDE Status: Acute Current Visit: Yes (3) Depression with anxiety SNOMED Code(s): 356791634 Code(s): F41.8 - OTHER SPECIFIED ANXIETY DISORDERS Status: Chronic Current Visit: Yes (4) Bladder incontinence SNOMED Code(s): 741536965 Code(s): R32 - UNSPECIFIED URINARY INCONTINENCE Status: Chronic Current Visit: Yes (5) Hyperlipidemia SNOMED Code(s): 63000910 Code(s): E78.5 - HYPERLIPIDEMIA, UNSPECIFIED Status: Acute Current Visit: Yes - Problem List Review Problem List Initiated/Reviewed/Updated: Yes - Plan Plan:: This 65-year-old female admitted with suspected acute CVA with left-sided hemiparesis 1. Acute CVA -Dr. Oneil consulted appreciate her assistance -Continue telemetry no arrhythmias note -Zio patch on discharge -Continue aspirin daily -Continue atorvastatin 80 mg daily -PT and OT to evaluate and treat continues to make improvements daily awaiting placement approval versus home with outpatient therapies VTE prophylaxis: Lovenox CODE STATUS: DNR/DNI per patient Dispo 2 to 3 days, likely to SNF
[2021-02-12] MEDS: Escitalopram 10 MG Tab PO SCH (08:28)
[2021-02-12] MEDS: Aspirin 81 MG Tab.Chew PO SCH (08:28)
[2021-02-12] MEDS: Tolterodine 2 MG Cap.ER PO SCH (08:28)
[2021-02-12] MEDS: Enoxaparin 40 MG/0.4 ML Syringe SUBCUT SCH (08:29)
[2021-02-12] MEDS: atorvaSTATin 40 MG Tab PO SCH (20:38)
--- NOTE | 2021-02-13 08:06 | PCM.PN ---
- General Info Date of Service: 02/13/21 Admission Dx/Problem (Free Text): Admission Diagnosis/Problem Admission Diagnosis/Problem Stroke of unknown etiology Subjective Update: Doing well this morning, has mild headache. No blurred vision or double vision. No new neurological concerns. reports she feels a little groggy, she didn't sleep well. Hoping for a nap later. No chest pain or SOB. Continues to show improvements in strength and coordination. Functional Status: Reports: Pain Controlled, Tolerating Diet, Ambulating, Urinating - Review of Systems General: Reports: Fatigue HEENT: Reports: Headaches (mild frontal headache). Denies: Visual Changes Pulmonary: Reports: No Symptoms. Denies: Shortness of Breath Cardiovascular: Reports: No Symptoms. Denies: Chest Pain Gastrointestinal: Reports: No Symptoms. Denies: Abdominal Pain, Nausea, Vomiting Genitourinary: Reports: No Symptoms. Denies: Dysuria, Frequency Musculoskeletal: Reports: No Symptoms Skin: Reports: No Symptoms Neurological: Reports: Difficulty Walking (steadily improving), Weakness (L side upper and lower extremities. improving) Psychiatric: Reports: No Symptoms - Patient Data Vitals - Most Recent: Last Vital Signs Temp 97.1 F 02/13/21 04:00 Pulse 70 02/13/21 04:00 Resp 16 02/13/21 04:00 BP 123/62 02/13/21 04:00 Pulse Ox 93 L 02/13/21 04:00 Weight - Most Recent: 85.956 kg I&O - Last 24 Hours: Intake & Output 02/12/21 02/13/21 02/13/21 22:59 06:59 14:59 Intake Total 1125 600 Output Total 801 Balance 1125 -201 Med Orders - Current: Current Medications Acetaminophen (Acetaminophen 325 Mg Tab) 650 mg PO Q4H PRN PRN Reason: Pain (Mild 1-3)/fever Last Admin: 02/11/21 19:50 Dose: 650 mg Documented by: Aspirin (Aspirin 81 Mg Tab.Chew) 81 mg PO DAILY [facility] Last Admin: 02/12/21 08:28 Dose: 81 mg Documented by: Atorvastatin Calcium (Atorvastatin 40 Mg Tab) 80 mg PO BEDTIME [facility] Last Admin: 02/12/21 20:38 Dose: 80 mg Documented by: Docusate Sodium (Docusate Sodium 100 Mg Cap) 100 mg PO BID PRN PRN Reason: Constipation Enoxaparin Sodium (Enoxaparin 40 Mg/0.4 Ml Syringe) 40 mg SUBCUT Q24H [facility] Last Admin: 02/12/21 08:29 Dose: 40 mg Documented by: Escitalopram Oxalate (Escitalopram 10 Mg Tab) 20 mg PO DAILY [facility] Last Admin: 02/12/21 08:28 Dose: 20 mg Documented by: Ondansetron HCl (Ondansetron 4 Mg/2 Ml Sdv) 4 mg IVPUSH Q4H PRN PRN Reason: Nausea Sodium Chloride (Sodium Chloride 0.9% 2.5 Ml Syringe) 2.5 ml FLUSH ASDIRECTED PRN PRN Reason: Keep Vein Open Tolterodine Tartrate (Tolterodine 2 Mg Cap.Er) 2 mg PO DAILY [facility] Last Admin: 02/12/21 08:28 Dose: 2 mg Documented by: Discontinued Medications Aspirin (Aspirin 81 Mg Tab.Chew) 324 mg PO ONETIME ONE Stop: 02/05/21 07:19 Last Admin: 02/05/21 07:29 Dose: 324 mg Documented by: Gadobenate Dimeglumine (Gadobenate Dimeglumine 529 Mg/Ml 20 Ml Sdv) 20 ml IVPUSH ONETIME STA Stop: 02/05/21 13:21 Last Admin: 02/05/21 13:21 Dose: 17 ml Documented by: Sodium Chloride (Normal Saline) 1,000 mls @ 100 mls/hr IV ASDIRECTED [facility] Last Admin: 02/05/21 07:30 Dose: 100 mls/hr Documented by: Influenza Virus Vaccine (Flu Vacc [id number](65yr Up)/Pf 240 Mcg/0.7 Ml Syringe) 240 mcg IM .ONCE ONE Stop: 02/05/21 13:46 Iopamidol (Iopamidol 755 Mg/Ml 500 Ml Multipack Bottle) 100 ml IVPUSH ONETIME STA Stop: 02/05/21 07:19 Last Admin: 02/05/21 07:19 Dose: 100 ml Documented by: Potassium Chloride (Potassium Chloride 20 Meq Tab.Er) 20 meq PO ONETIME ONE Stop: 02/06/21 07:57 Last Admin: 02/06/21 08:05 Dose: 20 meq Documented by: Sodium Chloride (Sodium Chloride 0.9% 10 Ml Syringe) 10 ml FLUSH ASDIRECTED PRN PRN Reason: Keep Vein Open Last Admin: 02/05/21 07:30 Dose: 10 ml Documented by: Sodium Chloride (Sodium Chloride 0.9% 2.5 Ml Syringe) 2.5 ml FLUSH ASDIRECTED PRN PRN Reason: Keep Vein Open Last Admin: 02/05/21 07:30 Dose: 2.5 ml Documented by: - Exam Quality Assessment: DVT Prophylaxis. No: Supplemental Oxygen General: Alert, Oriented, Cooperative Lungs: Clear to Auscultation, Normal Respiratory Effort Cardiovascular: Regular Rate, Regular Rhythm. No: Irregular Rhythm GI/Abdominal Exam: Normal Bowel Sounds, Soft, Non-Tender Extremities: Normal Inspection, Normal Range of Motion, Non-Tender, No Pedal Edema Neurological: No: Strength Equal Bilateral (L greater than R, but improving daily) Psy/Mental Status: Alert, Normal Affect, Normal Mood - Patient Data Result Diagrams: 02/07/21 08:50 02/07/21 08:50 Sepsis Event Note - Evaluation Sepsis Screening Result: No Definite Risk - Focused Exam Vital Signs: Vital Signs Temp Pulse Resp BP Pulse Ox 02/13/21 04:00 97.1 F 70 16 123/62 93 L 02/13/21 00:00 98.4 F 66 14 105/54 L 94 L - Problem List & Annotations (1) Acute CVA (cerebrovascular accident) SNOMED Code(s): 662858143, 186151302 Code(s): I63.9 - CEREBRAL INFARCTION, UNSPECIFIED Status: Acute Current Visit: Yes (2) Left hemiparesis SNOMED Code(s): 217706208 Code(s): G81.94 - HEMIPLEGIA, UNSPECIFIED AFFECTING LEFT NONDOMINANT SIDE Status: Acute Current Visit: Yes (3) Depression with anxiety SNOMED Code(s): 442419120 Code(s): F41.8 - OTHER SPECIFIED ANXIETY DISORDERS Status: Chronic Current Visit: Yes (4) Bladder incontinence SNOMED Code(s): 081640459 Code(s): R32 - UNSPECIFIED URINARY INCONTINENCE Status: Chronic Current Visit: Yes (5) Hyperlipidemia SNOMED Code(s): 77848009 Code(s): E78.5 - HYPERLIPIDEMIA, UNSPECIFIED Status: Acute Current Visit: Yes - Problem List Review Problem List Initiated/Reviewed/Updated: Yes - My Orders Last 24 Hours: My Active Orders 02/12/21 12:41 Resuscitation Status Routine - Plan Plan:: This 65-year-old female admitted with suspected acute CVA with left-sided hemiparesis 1. Acute CVA -Dr. Oneil consulted appreciate her assistance -Continue telemetry no arrhythmias note -Zio patch on discharge -Continue aspirin daily -Continue atorvastatin 80 mg daily -PT and OT to evaluate and treat continues to make improvements daily awaiting placement approval versus home with outpatient therapies VTE prophylaxis: Lovenox CODE STATUS: Full code, patient changed mind. Dispo 2 to 3 days, possibly to SNF
[2021-02-13] MEDS: Enoxaparin 40 MG/0.4 ML Syringe SUBCUT SCH (09:16)
[2021-02-13] MEDS: Aspirin 81 MG Tab.Chew PO SCH (09:16)
[2021-02-13] MEDS: Tolterodine 2 MG Cap.ER PO SCH (09:17)
[2021-02-13] MEDS: Escitalopram 10 MG Tab PO SCH (09:17)
[2021-02-13] MEDS: atorvaSTATin 40 MG Tab PO SCH (20:04)
[2021-02-14] MEDS: Escitalopram 10 MG Tab PO SCH (08:42)
[2021-02-14] MEDS: Tolterodine 2 MG Cap.ER PO SCH (08:42)
[2021-02-14] MEDS: Aspirin 81 MG Tab.Chew PO SCH (08:42)
[2021-02-14] MEDS: Enoxaparin 40 MG/0.4 ML Syringe SUBCUT SCH (08:42)
--- NOTE | 2021-02-14 11:31 | PCM.DCSUM1 ---
Discharge Summary - Hospital Course Brief History: This 65-year-old female fahbs-udus-[id number] with past medical history of bladder control issues and anxiety/depression presented to the ER after she woke up early this morning around 2 AM to go to the bathroom when she noticed her left arm was significantly weak and left leg was weak as well. She had attempted to get up and ambulate feeling significantly tilted to the left and did fall as she was unlocking her back torso when someone came to help the door will be unlocked. She reports she otherwise has been feeling well. Maybe a small headache last night when she was leaving work but otherwise no other complaints. She denies any visual concerns. No dizziness or lightheadedness. No speech concerns or swallowing concerns. She denies any chest pain or shortness of breath no abdominal pain no incontinence of stool or urine. She denies any sensation concerns to the left upper and lower extremities. She feels that her left arm is significantly heavy. She feels the weakness is more in her left foot more so in the entire leg. She has no concerns of the right extremity and strength is good. She denies any history of this in the past. She denies any family history of CVA. She does report that her brother recently had coronary artery stents placed. She denies any history of hypertension, diabetes or high cholesterol. She denies any tobacco use during her lifetime, no alcohol use and no recreational drug use. She denies any arrhythmias. She does report that she drinks monster drinks at least 1 a day. In the ER no leukocytosis noted. INR 1.0 sodium 144 potassium 3.6 BUN 14 creatinine 1.0 hemoglobin A1c 5.5 troponin negative triglycerides 127 total cholesterol 235 LDL 149 HDL 61 TSH 3.11 urine negative SARS-CoV-[address] obtained which shows no acute appearing findings no mass lesion or hemorrhage noted. Mild cortical atrophy no hydrocephalus. Head CTA obtained on preliminary reading shows no large vessel occlusion no significant stenosis. CTA of the neck shows no carotid stenosis no dissection involving the carotid or vertebral system per preliminary report. Chest x-ray reveals no evidence of acute cardiopulmonary disease. Lumbar x-ray shows demineralization and degenerative changes without fracture or destructive process. EKG sinus rhythm no acute arrhythmia noted. Patient was given aspirin in the ER. Blood pressures 1 50-1 60 over 80s in the ER. Heart rates 70s to 80s. Afebrile. Dr. Oneil was consulted in the ER regarding acute CVA. Patient outside of timeframe for TPA. No acute thrombectomy needed at this time. Patient to be admitted for possible acute CVA with left-sided weakness. Diagnosis: Stroke: Yes Modified Nazareth Scale: Slight Disable;Unable to Carry Out Prev Act.Able to Look After Affairs Modified Nazareth Scale Score: 2 - Discharge Data Discharge Date: 02/14/21 Discharge Disposition: Home, Self-Care 01 Condition: Good - Referral to Home Health Primary Care Physician: PCP None - Discharge Diagnosis/Problem(s) (1) Acute CVA (cerebrovascular accident) SNOMED Code(s): 177474518, 928394383 ICD Code: I63.9 - CEREBRAL INFARCTION, UNSPECIFIED Status: Acute Current Visit: Yes (2) Left hemiparesis SNOMED Code(s): 044219854 ICD Code: G81.94 - HEMIPLEGIA, UNSPECIFIED AFFECTING LEFT NONDOMINANT SIDE Status: Acute Current Visit: Yes (3) Depression with anxiety SNOMED Code(s): 210117776 ICD Code: F41.8 - OTHER SPECIFIED ANXIETY DISORDERS Status: Chronic Current Visit: Yes (4) Bladder incontinence SNOMED Code(s): 874571442 ICD Code: R32 - UNSPECIFIED URINARY INCONTINENCE Status: Chronic Current Visit: Yes (5) Hyperlipidemia SNOMED Code(s): 15139330 ICD Code: E78.5 - HYPERLIPIDEMIA, UNSPECIFIED Status: Acute Current Visit: Yes - Patient Summary/Data Consults: Consultations 02/05/21 09:56 OT Evaluation and Treatment [CONS] Routine PT Evaluation and Treatment [CONS] Routine 02/05/21 11:51 Consult to Physician [CONS] Routine Hospital Course: Admission diagnoses Acute CVA Left hemiparesis Discharge diagnoses Acute CVA Left hemiparesis, improving HLD Other PMH Bladder incontinence Depression/anxiety Lakeisha was admitted secondary to acute CVA noted to have left hemiparesis. Brain MRI showed small acute infarction within the posterior right frontal lopez radiata. Dr. Oneil was consulted, and evaluated patient. Recommend continue treatment with statin and aspirin along with Zio patch to monitor for any type of atrial fibrillation or arrhythmia. Echo was obtained which showed left ventricular ejection fraction of 60 to 65%, normal right ventricular systolic function, aortic valve is structurally normal and tricuspid, trace mitral valve regurgitation, right ventricular systolic pressure was unable to be determined. No regional wall abnormalities noted and no intracardiac source of embolism identified. Patient had a physical therapy and Occupational Therapy consulted due to significant left hemiparesis of upper and lower extremities. Patient did well over the coming days. Strength was gained she ultimately was deciding to go to prison for intensive rehab purposes but during her time awaiting authorization for correction facility patient became more stable and able to ambulate with the help of a cane. She has arranged to stay with her [id number]-ic-jxk and receive outpatient therapies at [facility] in [place]. She will have a Zio patch placed and have follow-up appointment with Dr. Oneil. She is to continue aspirin 81 mg daily along with atorvastatin 80 mg at bedtime. Blood pressure has remained stable and does not needed blood pressure medication at this time. Patient will have follow-up with PCP in 7 to 10 days will also have follow-up with Dr. Oneil. She is to return to the ER clinic if concerns should arise sooner. - Patient Instructions Diet: Heart Healthy Diet Activity: As Tolerated Driving: Do Not Drive Showering/Bathing: May Shower Notify Provider of: Fever, Increased Pain, Swelling and Redness, Drainage, Nausea and/or Vomiting Other/Special Instructions: ZIO patch x 14 days. Please arrange outpatient PT/OT in [place], [place] - Discharge Plan *PRESCRIPTION DRUG MONITORING PROGRAM REVIEWED*: Not Applicable *COPY OF PRESCRIPTION DRUG MONITORING REPORT IN PATIENT VERONICA: Not Applicable Prescriptions/Med Rec: Aspirin 81 mg PO DAILY #30 tab.chew atorvaSTATin Calcium [Atorvastatin Calcium] 80 mg PO DAILY #30 tablet Home Medications: Home Meds Ergocalciferol (Vitamin D2) [Vitamin D2] 1.25 mg PO WEEKLY 02/05/21 [History] Escitalopram [Lexapro] 20 mg PO DAILY 02/05/21 [History] Tolterodine Tartrate [Tolterodine Tartrate ER] 2 mg PO DAILY 02/05/21 [History] Aspirin 81 mg PO DAILY #30 tab.chew 02/14/21 [Rx] atorvaSTATin Calcium [Atorvastatin Calcium] 80 mg PO DAILY #30 tablet 02/14/21 [Rx] Oxygen Therapy Mode: Room Air Patient Handouts: Aspirin Chewable Tablets, Stroke Prevention, Tjiv-cw-Brvj, Eating Plan After Stroke, Atorvastatin Tablets, Physical Therapy After a Stroke Referrals: Sarah Cleaning PA-C [Ordering Only Provider] - 02/14/21 2:00 pm Radha Oneil MD [Physician] - - Discharge Summary/Plan Comment DC Time >30 min.: No Total # of Minutes for Discharge Time: 25 - Patient Data Vitals - Most Recent: Last Vital Signs Temp 96.4 F L 02/14/21 08:00 Pulse 77 02/14/21 08:00 Resp 20 02/14/21 08:00 BP 136/70 02/14/21 08:00 Pulse Ox 96 02/14/21 08:00 Weight - Most Recent: 85.956 kg I&O - Last 24 hours: Intake & Output 02/13/21 02/14/21 02/14/21 22:59 06:59 14:59 Intake Total 1050 450 Output Total 700 Balance 1050 -250 Med Orders - Current: Current Medications Acetaminophen (Acetaminophen 325 Mg Tab) 650 mg PO Q4H PRN PRN Reason: Pain (Mild 1-3)/fever Last Admin: 02/11/21 19:50 Dose: 650 mg Documented by: Aspirin (Aspirin 81 Mg Tab.Chew) 81 mg PO DAILY [facility] Last Admin: 02/14/21 08:42 Dose: 81 mg Documented by: Atorvastatin Calcium (Atorvastatin 40 Mg Tab) 80 mg PO BEDTIME [facility] Last Admin: 02/13/21 20:04 Dose: 80 mg Documented by: Docusate Sodium (Docusate Sodium 100 Mg Cap) 100 mg PO BID PRN PRN Reason: Constipation Enoxaparin Sodium (Enoxaparin 40 Mg/0.4 Ml Syringe) 40 mg SUBCUT Q24H [facility] Last Admin: 02/14/21 08:42 Dose: 40 mg Documented by: Escitalopram Oxalate (Escitalopram 10 Mg Tab) 20 mg PO DAILY [facility] Last Admin: 02/14/21 08:42 Dose: 20 mg Documented by: Ondansetron HCl (Ondansetron 4 Mg/2 Ml Sdv) 4 mg IVPUSH Q4H PRN PRN Reason: Nausea Sodium Chloride (Sodium Chloride 0.9% 2.5 Ml Syringe) 2.5 ml FLUSH ASDIRECTED PRN PRN Reason: Keep Vein Open Tolterodine Tartrate (Tolterodine 2 Mg Cap.Er) 2 mg PO DAILY [facility] Last Admin: 02/14/21 08:42 Dose: 2 mg Documented by: Discontinued Medications Aspirin (Aspirin 81 Mg Tab.Chew) 324 mg PO ONETIME ONE Stop: 02/05/21 07:19 Last Admin: 02/05/21 07:29 Dose: 324 mg Documented by: Gadobenate Dimeglumine (Gadobenate Dimeglumine 529 Mg/Ml 20 Ml Sdv) 20 ml IVPUSH ONETIME STA Stop: 02/05/21 13:21 Last Admin: 02/05/21 13:21 Dose: 17 ml Documented by: Sodium Chloride (Normal Saline) 1,000 mls @ 100 mls/hr IV ASDIRECTED JARROD Last Admin: 02/05/21 07:30 Dose: 100 mls/hr Documented by: Influenza Virus Vaccine (Flu Vacc [id number](65yr Up)/Pf 240 Mcg/0.7 Ml Syringe) 240 mcg IM .ONCE ONE Stop: 02/05/21 13:46 Iopamidol (Iopamidol 755 Mg/Ml 500 Ml Multipack Bottle) 100 ml IVPUSH ONETIME STA Stop: 02/05/21 07:19 Last Admin: 02/05/21 07:19 Dose: 100 ml Documented by: Potassium Chloride (Potassium Chloride 20 Meq Tab.Er) 20 meq PO ONETIME ONE Stop: 02/06/21 07:57 Last Admin: 02/06/21 08:05 Dose: 20 meq Documented by: Sodium Chloride (Sodium Chloride 0.9% 10 Ml Syringe) 10 ml FLUSH ASDIRECTED PRN PRN Reason: Keep Vein Open Last Admin: 02/05/21 07:30 Dose: 10 ml Documented by: Sodium Chloride (Sodium Chloride 0.9% 2.5 Ml Syringe) 2.5 ml FLUSH ASDIRECTED PRN PRN Reason: Keep Vein Open Last Admin: 02/05/21 07:30 Dose: 2.5 ml Documented by:
== END 2021-02-14 17:30 | disposition home or self-care (01) | DRG 45 ==
LOC: MW.ED 06:55 → MW.MS 09:44
PROVIDERS: ADMIT Internal Medicine; ATTEND Internal Medicine
DX: I63.9 Cerebral infarction, unspecified (principal); G81.94 Hemiplegia, unspecified affecting left nondominant side; Z66 Do not resuscitate; F41.8 Other specified anxiety disorders; R32 Unspecified urinary incontinence; E78.5 Hyperlipidemia, unspecified; Z20.822 Contact with and (suspected) exposure to COVID-19; R29.704 NIHSS score 4; R40.2412 Glasgow coma scale score 13-15, at arrival to emergency department; Z91.030 Bee allergy status; Z88.0 Allergy status to penicillin; Z90.710 Acquired absence of both cervix and uterus
CPT/HCPCS: 36415; 70450; 70450-26; 70496; 70496-26; 70498; 70498-26; 70553; 70553-26; 71045; 71045-26; 72100; 72100-26; 80048; 80053; 80061; 81003; 83036; 83735; 84443; 84484; 85025; 85610; 85730; 93005; 93010; 93306; 97110-GO; 97110-GP; 97112-GP; 97162-GP; 97165-GO; 97530-GP; 99285; 99285-25; A9270-GY; A9577; J1650; J7030; Q9967; U0002